=== PATIENT | female | born 1960 | race Caucasian/White ===

== ENCOUNTER → 2019-05-09 15:49 | Outpatient (BNVA) | payer MEDICARE, SELFPAY | PROVIDERS: Family Provider Registered Nurse; PCP Registered Nurse; Visit Provider Nurse Practitioner Family | DX: R60.9 Edema, unspecified (principal); E03.9 Hypothyroidism, unspecified; I73.9 Peripheral vascular disease, unspecified | CPT/HCPCS: 83880; 84443 ==

== ENCOUNTER 2019-05-24 13:57 | Outpatient (CLI) | payer MEDICARE, SELFPAY ==
--- NOTE | 2019-05-24 13:30 | USCV_ITS ---
Dee Dee Renetta Age: 58 Gender: F : 1960 Exam Date: 05/24/2019 14:12 Ordering Phys: Kiara Lord Technologist: Lashae Madden Exam Location: [facility] [place] Indication: PAIN AND SWELLING PROCEDURES: Venous duplex imaging was performed in bilateral lower extremities. The following venous structures were evaluated: common femoral vein, profunda vein, proximal portion of the greater saphenous vein, superficial femoral vein, and the popliteal vein. In addition, the posterior tibial and peroneal trunk were evaluated. FINDINGS: Normal 2-D Doppler and augmentation and compressibility throughout the lower extremity venous structures. Additional imaging through the proximal calf veins also reveals no thrombus. Limited evaluation of the greater saphenous vein is patent with no thrombus. CONCLUSIONS No DVT bilateral lower extremities. Dr. Laura Toribio DO (Electronically Signed) Final Date: 24 May 2019 14:58 S
== END 2019-05-24 13:58 | disposition home or self-care (01) ==
LOC: RAD 14:02
PROVIDERS: Family Provider Registered Nurse; PCP Registered Nurse; Visit Provider Nurse Practitioner Family
DX: I73.9 Peripheral vascular disease, unspecified (principal); M79.605 Pain in left leg; M79.604 Pain in right leg; M79.89 Other specified soft tissue disorders
CPT/HCPCS: 93970

== ENCOUNTER 2019-05-25 15:33 | Outpatient (CLI) | payer MEDICARE, SELFPAY ==
--- NOTE | 2019-05-25 15:43 | USCV_ITS ---
Renetta Funez Age: 58 Gender: F : 1960 Exam Date: 05/25/2019 15:52 Ordering Phys: Kiara Lord Technologist: Mouna Estrada [place] [facility] [place]ication: Claudication Risk Factors: Unknown Previous Vascular Surgery: None RIGHT LEFT BP: 131.0 / BP: 135.0/ 0 0 Waveform Velocity (cm/s) Velocity (cm/s) Waveform Triphasic 113.8 Iliac Prox 84.7 Triphasic Biphasic 85.9 Iliac Mid 96.4 Triphasic Triphasic 89.4 Iliac Distal 67.3 Triphasic Biphasic 80.1 GENERAL FARM MANAGER 87.5 Triphasic Biphasic 74.3 SFA Prox 80.1 Triphasic Biphasic 78.2 SFA Mid 75.8 Triphasic Triphasic 89.6 SFA Dist 102.5 Triphasic Triphasic 65.4 POP 42.9 Biphasic Biphasic 69.8 TELETYPEWRITER OPERATOR 64.3 Biphasic Biphasic 141.7 DPA 33.0 Biphasic DEANGELO 1.3 1.3 FINDINGS RT TBI .76 LT TBI .96 Normal resting ABIs and TBI's bilaterally Minimal plaques in the iliac and femoral arteries bilaterally CONCLUSIONS No significant arterial obstruction, based on the above findings Minimal plaques in the iliac and femoral arteries bilaterally Dr Jorge Dutton MD [facility] (Electronically Signed) Final Date: 26 May 2019 09:34 S
== END 2019-05-25 15:34 | disposition home or self-care (01) ==
LOC: RAD 15:36
PROVIDERS: Family Provider Registered Nurse; PCP Registered Nurse; Visit Provider Nurse Practitioner Family
DX: I70.213 Atherosclerosis of native arteries of extremities with intermittent claudication, bilateral legs (principal)
CPT/HCPCS: 93925; 99214

== ENCOUNTER → 2019-06-15 09:59 | Outpatient (BNVA) | payer MEDICARE, SELFPAY | PROVIDERS: Family Provider Registered Nurse; PCP Registered Nurse; Visit Provider Psychiatry & Neurology Psychiatry | DX: F43.12 Post-traumatic stress disorder, chronic (principal); F31.32 Bipolar disorder, current episode depressed, moderate | CPT/HCPCS: 99213 ==

== ENCOUNTER → 2019-09-05 08:50 | Outpatient (BNVA) | payer MEDICARE, SELFPAY | PROVIDERS: Family Provider Registered Nurse; PCP Registered Nurse; Visit Provider Psychiatry & Neurology Psychiatry | DX: F60.3 Borderline personality disorder (principal); F43.12 Post-traumatic stress disorder, chronic; F33.1 Major depressive disorder, recurrent, moderate | CPT/HCPCS: 99213 ==

== ENCOUNTER → 2019-12-11 10:29 | Outpatient (BNVA) | payer MEDICARE, SELFPAY | PROVIDERS: Family Provider Registered Nurse; PCP Registered Nurse; Visit Provider Psychiatry & Neurology Psychiatry | DX: F60.3 Borderline personality disorder (principal); F43.12 Post-traumatic stress disorder, chronic; F33.1 Major depressive disorder, recurrent, moderate | CPT/HCPCS: 99213 ==

== ENCOUNTER → 2020-01-31 10:50 | Outpatient (BNVA) | payer MEDICARE, SELFPAY | PROVIDERS: Family Provider Registered Nurse; PCP Registered Nurse; Visit Provider Registered Nurse | DX: E78.2 Mixed hyperlipidemia (principal); E03.9 Hypothyroidism, unspecified | CPT/HCPCS: 80053; 80061; 84443; 85025 ==

== ENCOUNTER → 2020-02-09 07:40 | Outpatient (BNVA) | payer MEDICARE, SELFPAY | PROVIDERS: Family Provider Registered Nurse; PCP Registered Nurse; Visit Provider Psychiatry & Neurology Psychiatry | DX: F60.3 Borderline personality disorder (principal); F43.12 Post-traumatic stress disorder, chronic; F33.1 Major depressive disorder, recurrent, moderate | CPT/HCPCS: 99213 ==

== ENCOUNTER → 2020-03-05 15:08 | Outpatient (BNVA) | payer MEDICARE, SELFPAY | PROVIDERS: Family Provider Registered Nurse; PCP Registered Nurse; Visit Provider Registered Nurse | DX: R39.9 Unspecified symptoms and signs involving the genitourinary system (principal) | CPT/HCPCS: 81000 ==

== ENCOUNTER → 2020-03-08 07:52 | Outpatient (BNVA) | payer MEDICARE, SELFPAY | PROVIDERS: Family Provider Registered Nurse; PCP Registered Nurse; Visit Provider Psychiatry & Neurology Psychiatry | DX: F60.3 Borderline personality disorder (principal); F43.12 Post-traumatic stress disorder, chronic; F33.1 Major depressive disorder, recurrent, moderate | CPT/HCPCS: 99213 ==

== ENCOUNTER → 2020-03-18 13:40 | Outpatient (BNVA) | payer MEDICARE, SELFPAY | PROVIDERS: Family Provider Registered Nurse; PCP Registered Nurse; Visit Provider Nurse Practitioner Family | DX: M79.671 Pain in right foot (principal) | CPT/HCPCS: 73630 ==

== ENCOUNTER 2020-03-21 14:45 | Outpatient (CLI) | payer MEDICARE, SELFPAY ==
--- NOTE | 2020-03-21 15:00 | MM_ITS ---
WS: [id number] BILATERAL SCREENING DIGITAL MAMMOGRAM WITH CAD HISTORY: screening mammogram COMPARISON: 11/24/2017 and 10/01/2016 Bilateral CC and MLO views submitted. Computer aided detection analyzed. Breast composition: The breasts are heterogeneously dense, which may obscure small masses. No suspici ous masses, microcalcifications or architectural distortion. Benign lymph node upper outer quadrant R IGHT breast. MM/[id number] IMPRESSION: BI-RADS: 2-Benign FOLLOW UP: 1 Year Follow-up
== END 2020-03-21 14:46 | disposition home or self-care (01) ==
LOC: RADSHAW 14:51
PROVIDERS: PCP Registered Nurse; Visit Provider Registered Nurse
DX: Z12.31 Encounter for screening mammogram for malignant neoplasm of breast (principal)
CPT/HCPCS: 77067

== ENCOUNTER → 2020-05-06 07:48 | Outpatient (BNVA) | payer MEDICARE, SELFPAY | PROVIDERS: PCP Registered Nurse; Visit Provider Psychiatry & Neurology Psychiatry | DX: F33.1 Major depressive disorder, recurrent, moderate (principal); F43.12 Post-traumatic stress disorder, chronic; F60.3 Borderline personality disorder | CPT/HCPCS: 99213 ==

== ENCOUNTER → 2020-06-03 08:17 | Outpatient (BNVA) | payer MEDICARE, SELFPAY | PROVIDERS: PCP Registered Nurse; Visit Provider Psychiatry & Neurology Psychiatry | DX: F43.12 Post-traumatic stress disorder, chronic (principal); F60.3 Borderline personality disorder; F33.1 Major depressive disorder, recurrent, moderate | CPT/HCPCS: 99214 ==

== ENCOUNTER → 2020-06-18 07:54 | Outpatient (BNVA) | payer MEDICARE, SELFPAY | PROVIDERS: PCP Registered Nurse; Visit Provider Psychiatry & Neurology Psychiatry | DX: F60.3 Borderline personality disorder (principal); F41.1 Generalized anxiety disorder; F43.12 Post-traumatic stress disorder, chronic | CPT/HCPCS: 99213 ==

== ENCOUNTER 2020-07-31 16:11 | Inpatient (IN) | payer MEDICARE, SELFPAY ==
[2020-07-31 16:15] VITALS: BP 132/66; PULSE 76; RESP 18; TEMP 37.1; O2SAT 97
[2020-07-31 16:30] VITALS: BP 132/99; PULSE 74; RESP 18; O2SAT 97
[2020-07-31 17:12] LABS: Add Urine Microscopic? NO
[2020-07-31 17:13] LABS: Basophils % 0.5 %; Eosinophils # 0.1 10^3/uL (0.0-0.8); Eosinophils % 1.4 %; Hemoglobin 15.4 g/dL (11.5-15.3); Lymphocytes # 3.5 10^3/uL (0.8-4.8); Mean Corpuscular Hemoglobin 32.8 pg (28.0-34.0); Mean Corpuscular Volume 93.6 fL (81-99); Mean Platelet Volume 9.9 fL (7.4-10.4); Monocytes # 0.6 10^3/uL (0.2-0.9); Monocytes % 7.4 %; Neutrophils # 4.28 10^3/uL (1.8-7.7); Neutrophils % 49.5 %; Nucleated Red Blood Cells % 0 %; Platelet Count 261 10^3/cmm (130-400); Red Cell Distribution Width 11.9 % (12.1-15.1); White Blood Count 8.6 10^3/uL (4.0-10.0)
--- NOTE | 2020-07-31 17:25 | PC.PHAR ---
pt states she takes care of her own medications-pt states she takes metoprolol tartrate maybe a couple times a week-ext med history shows last filled on 07/04/20 25mg po bid-
[2020-07-31] MEDS: acetaminophen 325 mg Tablet 650 MG PO (17:26)
[2020-07-31 17:31] LABS: Bilirubin Urine Neg (Negative); Blood Urine Neg (Negative); Glucose Urine UA Norm (Normal); Ketones Urine Negative (Negative); Leukocyte Esterase Urine Negative (Negative); Nitrate Urine Negative (Negative); Protein Urine Neg (Negative); Urine Appearance Clear (CLEAR); Urine Color Straw (Yellow); Urobilinogen Urine Norm (Negative); pH Urine 5 (5-7)
[2020-07-31 17:39] LABS: Amphetamines Screen Urine Negative (Negative); Barbiturates Screen Urine Negative (Negative); Benzodiazepines Screen Urine Positive (Negative); Cocaine Screen Urine Negative (Negative); Opiate Screen Urine Negative (Negative); PCP Screen Urine Negative (Negative); THC Screen Urine Negative (Negative)
[2020-07-31 18:02] LABS: Alanine Aminotransferase 21 U/L (0-33); Albumin Level 4.9 g/dL (3.5-5.2); Alkaline Phosphatase 158 IU/L (35-105); Anion Gap 14.8 (5-19); Aspartate Amino Transferase 17 U/L (0-32); Blood Urea Nitrogen 16 mg/dL (8-23); Calcium 9.8 mg/dL (8.5-10.5); Carbon Dioxide 31 mmol/L (22-29); Chloride 102 mmol/L (98-107); Globulin 2.8 g/dL (1.3-4.6); Glomerular Filtration Rate 72.9 mL/min (90-130); Glucose 71 mg/dL (65-115); Osmolality Calculated 298 mOsm/kg (285-295); Potassium 3.8 mmol/L (3.5-5.1); Sodium 144 mmol/L (136-145); Thyroid Stimulating Hormone 3.04 uIU/mL (0.27-4.20); Total Bilirubin 0.2 mg/dL (0.15-1.2); Total Protein 7.7 g/dL (6.6-8.7)
[2020-07-31 18:09] LABS: Acetaminophen < 5.0 ug/mL (10-30); Alcohol Level < 10 mg/dL (0-10); Salicylate < 0.3 mg/dL (3-10)
--- NOTE | 2020-07-31 18:59 | W.ED.PSYCH ---
HPI - Psych General: Chief Complaint: Psychiatric Symptoms Stated Complaint: SI Time Seen by Provider: 07/31/20 16:12 History of Present Illness: HPI Narrative: Is a 59-year-old female with past medical history major depression who comes to the ER complaining of suicidal thoughts. She says over the past few months it has gotten worse because the shoe cementer told him they were for closing on their house and that they were going to sell it. She has obtained a entertainment lawyer to try and prevent this however recently learned she was swindled out of $8000 and that they are still losing their home. She has attempted to overdose on prescription medications in the past but made no attempt today and has no immediate plan of action. She is tearful and sad she feels like she is ruining her her children and her grandchildren's life complaint: suicidal ideation and feels depressed Duration: constant History of same: Yes Relieving factors: none Exacerbating factors: none Associated psychiatric symptoms: depression and suicidal ideation Associated symptoms: Reports depression and suicidal ideation If self harm: admits thoughts of self harm Review of Systems General: Reports: 10 or more systems reviewed and unremarkable except in HPI and below Const: Denies: fatigue Eyes: Denies: change in vision, blurry vision or eye redness ENMT: Denies: throat pain, swelling of lips/tongue, ear or mastoid pain or nasal congestion Card: Denies: chest pain, palpitations, irregular heart rhythm, edema, dyspnea on exertion or orthopnea Resp: Denies: dyspnea, productive cough or non-productive cough GI: Denies: abdominal pain, diarrhea or GI cramping : Denies: flank pain, difficulty voiding, urinary frequency or urinary urgency Musc: Denies: neck pain, back pain, extremity pain, joint pain, joint redness, limited range of motion or muscle weakness Skin/Breast: Denies: rash, pruritus, erythema, skin pain or skin tenderness Neuro: Denies: headache(s), numbness in extremities, weakness in extremities, sensory changes, difficulty walking, dizziness, confusion or Slurred speech present Psych: Reports: depression and suicidal ideation; Denies: anxiety Endo: Denies: polyuria All/Imm: Denies: urticaria, throat swelling or tongue swelling PFS ED PFSH: Medical History (Updated 07/31/20 @ 19:02 by Alejandro Coto MD) Back pain of lumbosacral region with sciatica Edema Enrolled in chronic care management History of UT (myocardial infarction) Hyperlipemia Mental and behavioral problem Shortness of breath Family History Other No significant family history Social History Smoking and tobacco status: never smoked Second hand smoke exposure: Yes Smoking risk assessment/counseling performed?: No Alcohol intake: never Physical Exam Const: COMMON NORMALS: no acute distress, average body habitus, patient oriented x3, no limitations, healthy appearing, alert and well nourished GENERAL APPEARANCE: cooperative, comfortable and well developed ORIENTATION/CONSCIOUSNESS: Yes awake, Yes oriented to person, Yes oriented to place and Yes oriented to time HENMT: COMMON NORMALS: normocephalic, external ears normal and Normal external nose present HEAD & SCALP: normal to inspection and normocephalic NOSE: Normal external nose present EXTERNAL EAR: Yes external ears normal MOUTH: Normal oral and palatal mucosa present THROAT: posterior oropharynx normal Eye: COMMON NORMALS: Equal, round and reactive pupils present and EOMs intact bilaterally GENERAL EYE: appearance normal, both eyes and all related structures PUPIL: Yes Equal, round and reactive pupils present Neck/C-Spine: COMMON NORMALS: full ROM, no lymphadenopathy, no meningeal signs and no JVD GENERAL: Yes normal visual inspection Lymph: LYMPHATIC: no lymphadenopathy noted Chest: COMMONS NORMALS: normal inspection of the chest and normal palpation of entire chest wall Resp: COMMON NORMALS: normal respiratory effort, No retractions, No use of accessory muscles, clear to auscultation bilaterally and percussion normal EFFORT & INSPECTION: Yes able to speak in complete sentences AUSCULTATION: clear to auscultation bilaterally PERCUSSION: percussion normal Cardio: COMMON NORMALS: no JVD, regular rate, regular rhythm, S1 normal heart sound present, S2 normal heart sound present and Peripheral pulses 2+ throughout RATE: regular rate RHYTHM: regular rhythm HEART SOUNDS: S1 normal heart sound present and S2 normal heart sound present PERIPHERAL PULSES: Peripheral pulses 2+ throughout GI: COMMON NORMALS: Normal to inspection, nondistended, normoactive bowel sounds present, Soft to palpation, non-tender and no masses INSPECTION: Yes normal to inspection PALPATION: Yes Soft to palpation : COMMON NORMALS: Yes no CVA tenderness BLADDER/KIDNEY EXAM: Yes no CVA tenderness Back/Pelvis: COMMON NORMALS: no CVA tenderness, thoracic and lumbar spine normal to inspection, no thoracic nor lumbar tenderness and thoraco-lumbar ROM normal Extremity: COMMON NORMALS: normal to inspection, full ROM, capillary refill normal, no joint enlargement and no pedal edema GENERAL: Yes normal exam except as noted Neuro: COMMON NORMALS: patient oriented x3, CN's II-XII intact bilaterally, moves all extremities, no focal motor deficits, no sensory deficits noted and gait normal SENSORIUM/ORIENTATION: Yes alert, Yes oriented to person, Yes oriented to place and Yes oriented to time MENINGEAL SIGNS: Yes no meningeal signs Psych: COMMON NORMALS: mental status grossly normal, Normal thought process present, cooperative, normal affect and speech normal APPEARANCE: Yes unkempt ATTITUDE: Yes calm SPEECH: Yes normal speech MOOD & AFFECT: Yes depressed mood, Yes sad and Yes tearful THOUGHT PROCESS: Normal thought process present THOUGHT CONTENT: Yes Suicidality present Skin: COMMON NORMALS: no rashes or lesions noted GENERAL SKIN EXAM: no rashes or lesions noted MDM - Psych MDM Narrative: Medical decision making narrative: The patient is suicidal. Discussed with Dr. Pereira who accepts for admission. Lab Data: Labs: Lab Results 07/31/20 07/31/20 07/31/20 Range/Units 16:47 16:47 16:47 WBC 8.6 (4.0-10.0) 10^3/ uL RBC 4.70 (4.1-5.3) 10^6/u L Hgb 15.4 H (11.5-15.3) g/dL Hct 44.0 (37.0-47.0) % MCV 93.6 (81-99) fL MCH 32.8 (28.0-34.0) pg MCHC 35.0 (30.0-36.0) g/dL RDW 11.9 L (12.1-15.1) % Plt Count 261 (130-400) 10^3/c mm MPV 9.9 (7.4-10.4) fL Neut % (Auto) 49.5 % Lymph % (Auto) 41.0 % [place] % (Auto) 7.4 % Eos % (Auto) 1.4 % Baso % (Auto) 0.5 % Neut # (Auto) 4.28 (1.8-7.7) 10^3/u L Lymph # (Auto) 3.5 (0.8-4.8) 10^3/u L [place] # (Auto) 0.6 (0.2-0.9) 10^3/u L Eos # (Auto) 0.1 (0.0-0.8) 10^3/u L Baso # (Auto) 0.0 (0.0-0.1) 10^3/u L Nucleated RBC % (a uto) 0 % Nucleated RBCs # 0.0 /100WBC Sodium 144 (136-145) mmol/L Potassium 3.8 (3.5-5.1) mmol/L Chloride 102 (98-107) mmol/L Carbon Dioxide 31 H (22-29) mmol/L Anion Gap 14.8 (5-19) BUN 16 (8-23) mg/dL Creatinine 0.8 (0.5-0.9) mg/dL GFR Calculation 72.9 L (90-130) mL/min Glucose 71 (65-115) mg/dL Calculated Osmolal ity 298 H (285-295) mOsm/k g Calcium 9.8 (8.5-10.5) mg/dL Total Bilirubin 0.2 (0.15-1.2) mg/dL AST 17 (0-32) U/L ALT 21 (0-33) U/L Alkaline Phosphata se 158 H (35-105) IU/L Total Protein 7.7 (6.6-8.7) g/dL Albumin 4.9 (3.5-5.2) g/dL Globulin 2.8 (1.3-4.6) g/dL TSH 3.04 (0.27-4.20) uIU/ mL Urine Color Straw (Yellow) Urine Appearance Clear (CLEAR) Urine pH 5 (5-7) Ur Specific Gravit y 1.010 (1.005-1.030) Urine Protein Neg (Negative) Urine Glucose (UA) Norm (Normal) Urine Ketones Negative (Negative) Urine Blood Neg (Negative) Urine Nitrate Negative (Negative) Urine Bilirubin Neg (Negative) Urine Urobilinogen Norm (Negative) mg/dL Ur Leukocyte Veronica ase Negative (Negative) Salicylates < 0.3 L (3-10) mg/dL Urine Opiates Scre en (Negative) ng/mL Acetaminophen < 5.0 L (10-30) ug/mL Ur Barbiturates Sc reen (Negative) ng/mL Ur Phencyclidine S crn (Negative) ng/mL Ur Amphetamines Sc reen (Negative) ng/mL U Benzodiazepines Scrn (Negative) ng/mL Urine Cocaine Scre en (Negative) ng/mL U Marijuana (THC) Screen (Negative) ng/mL Ethyl Alcohol < 10 (0-10) mg/dL 07/31/20 Range/Units 16:47 WBC (4.0-10.0) 10^3/ uL RBC (4.1-5.3) 10^6/u L Hgb (11.5-15.3) g/dL Hct (37.0-47.0) % MCV (81-99) fL MCH (28.0-34.0) pg MCHC (30.0-36.0) g/dL RDW (12.1-15.1) % Plt Count (130-400) 10^3/c mm MPV (7.4-10.4) fL Neut % (Auto) % Lymph % (Auto) % [place] % (Auto) % Eos % (Auto) % Baso % (Auto) % Neut # (Auto) (1.8-7.7) 10^3/u L Lymph # (Auto) (0.8-4.8) 10^3/u L [place] # (Auto) (0.2-0.9) 10^3/u L Eos # (Auto) (0.0-0.8) 10^3/u L Baso # (Auto) (0.0-0.1) 10^3/u L Nucleated RBC % (a uto) % Nucleated RBCs # /100WBC Sodium (136-145) mmol/L Potassium (3.5-5.1) mmol/L Chloride (98-107) mmol/L Carbon Dioxide (22-29) mmol/L Anion Gap (5-19) BUN (8-23) mg/dL Creatinine (0.5-0.9) mg/dL GFR Calculation (90-130) mL/min Glucose (65-115) mg/dL Calculated Osmolal ity (285-295) mOsm/k g Calcium (8.5-10.5) mg/dL Total Bilirubin (0.15-1.2) mg/dL AST (0-32) U/L ALT (0-33) U/L Alkaline Phosphata se (35-105) IU/L Total Protein (6.6-8.7) g/dL Albumin (3.5-5.2) g/dL Globulin (1.3-4.6) g/dL TSH (0.27-4.20) uIU/ mL Urine Color (Yellow) Urine Appearance (CLEAR) Urine pH (5-7) Ur Specific Gravit y (1.005-1.030) Urine Protein (Negative) Urine Glucose (UA) (Normal) Urine Ketones (Negative) Urine Blood (Negative) Urine Nitrate (Negative) Urine Bilirubin (Negative) Urine Urobilinogen (Negative) mg/dL Ur Leukocyte Veronica ase (Negative) Salicylates (3-10) mg/dL Urine Opiates Scre en Negative (Negative) ng/mL Acetaminophen (10-30) ug/mL Ur Barbiturates Sc reen Negative (Negative) ng/mL Ur Phencyclidine S crn Negative (Negative) ng/mL Ur Amphetamines Sc reen Negative (Negative) ng/mL U Benzodiazepines Scrn Positive H (Negative) ng/mL Urine Cocaine Scre en Negative (Negative) ng/mL U Marijuana (THC) Screen Negative (Negative) ng/mL Ethyl Alcohol (0-10) mg/dL Discharge Plan Discharge Patient Disposition: Admitted As Inpatient Clinical Impression: Suicidal ideation Condition: Stable Coding Level of Care Code ED Sales Incentive Analyst for Mamie Beth
[2020-07-31 23:00] VITALS: BP 115/73; PULSE 66; TEMP 36.6
[2020-07-31 23:38] VITALS: BP 115/73; PULSE 66; RESP 18; TEMP 36.6
[2020-08-01] MEDS: acetaminophen 325 mg Tablet 650 MG PO ×3 (02:28→13:52)
[2020-08-01] MEDS: hyDROXYzine 25 mg Capsule 50 MG PO (02:29)
--- NOTE | 2020-08-01 03:50 | PC.NURSE ---
59/F HX OF MDD, COMPLAINT OF RACING AND INCREASINGLY SUICIDAL THOUGHTS, DEPRESSION INCREASED OVER THE LAST 2 MONTHS SHE SAYS THE LEGAL MARTIN IS JUST TO MUCH, PT IS HAVING FINANCIAL DIFFICULTIES AND FACING THE LOSS OF THEIR HOME. PT HAS ATTEMPTED OD SEVERAL TIMES IN THE PASTM SHE ADMITS TO THOUGHTS OF SUICIDE BUT NO PLAN AT THIS TIME, SHE IS TEARFUL AND SAD, SHE FEELS LIKE HER , CHILDREN, AND GRANDBABIES WOULD BE BETTER OFF WITHOUT HER. PT REPORTS CHRONIC PAIN AND DAILY USE OF MARIJUANA. BAL NEG v/s are wnl, states she has a headache and decreased energy, Med nurse notified, she is depressed, denies si/hi, denies ah/vh now. DOA +THC
[2020-08-01 05:34] VITALS: BP 135/71; PULSE 67; TEMP 36.4; O2SAT 97
[2020-08-01] MEDS: levothyroxine 25 mcg Tablet PO (06:38)
[2020-08-01] MEDS: fluoxetine 20 mg Capsule 60 MG PO (08:38)
[2020-08-01] MEDS: hydroCHLOROthiazide 25 mg Tablet 12.5 MG PO (08:38)
[2020-08-01] MEDS: metoprolol tartrate 25 mg Tablet PO ×2 (08:39→21:24)
[2020-08-01 13:03] VITALS: BP 154/77; PULSE 71; RESP 18; TEMP 36.4; O2SAT 97
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
[2020-08-01] MEDS: doxepin 50 mg Capsule PO (21:24)
[2020-08-01] MEDS: aspirin 81 mg EC Tablet PO (21:24)
[2020-08-01] MEDS: atorvastatin 40 mg Tablet 20 MG PO (21:25)
[2020-08-01 21:34] VITALS: BP 117/84; PULSE 71; RESP 18; TEMP 36.8; O2SAT 96
[2020-08-02] MEDS: fluoxetine 20 mg Capsule 60 MG PO (05:34)
[2020-08-02] MEDS: hydroCHLOROthiazide 25 mg Tablet 12.5 MG PO (05:34)
[2020-08-02] MEDS: levothyroxine 25 mcg Tablet PO (05:35)
[2020-08-02 06:00] VITALS: BP 126/78; PULSE 70; RESP 16; TEMP 36.9; O2SAT 97
[2020-08-02] MEDS: fluoxetine 20 mg Capsule 80 MG PO (07:03)
--- NOTE | 2020-08-02 07:15 | PC.NURSE ---
Prozac 80 mg ordered after 60mg was given. called Dr. Pereira he said order one time dose of 20mg. given
[2020-08-02] MEDS: fluoxetine 20 mg Capsule PO (07:18)
[2020-08-02] MEDS: metoprolol tartrate 25 mg Tablet PO (08:50)
[2020-08-02] MEDS: docusate sodium 100 mg Capsule PO (12:05)
[2020-08-02] MEDS: acetaminophen 325 mg Tablet 650 MG PO (13:37)
[2020-08-02 14:00] VITALS: RESP 18
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
[2020-08-02 16:13] VITALS: RESP 18
== END 2020-08-02 16:54 | disposition home or self-care (01) | DRG 881 ==
LOC: ER 19:02 → NP 19:23
PROVIDERS: Admitting Provider Psychiatry & Neurology Psychiatry; Emergency Provider Family Medicine; PCP Registered Nurse; Visit Provider Psychiatry & Neurology Psychiatry
DX: F32.9 Major depressive disorder, single episode, unspecified (principal); R45.851 Suicidal ideations; G89.29 Other chronic pain; M51.17 Intervertebral disc disorders with radiculopathy, lumbosacral region; I25.2 Old myocardial infarction; E78.2 Mixed hyperlipidemia; Z77.22 Contact with and (suspected) exposure to environmental tobacco smoke (acute) (chronic); K21.9 Gastro-esophageal reflux disease without esophagitis; E66.9 Obesity, unspecified; Z68.30 Body mass index [BMI] 30.0-30.9, adult; I25.10 Atherosclerotic heart disease of native coronary artery without angina pectoris; Z95.5 Presence of coronary angioplasty implant and graft; F43.12 Post-traumatic stress disorder, chronic; M48.061 Spinal stenosis, lumbar region without neurogenic claudication; E03.9 Hypothyroidism, unspecified; Z63.4 Disappearance and death of family member; I73.9 Peripheral vascular disease, unspecified; Z79.82 Long term (current) use of aspirin
CPT/HCPCS: 80053; 80306; 80307; 81003; 84443; 85025; 99285

== ENCOUNTER 2020-08-06 09:59 | Outpatient (CLI) | payer MEDICARE, SELFPAY ==
[2020-08-06 10:39] VITALS: BMI 32.9
--- NOTE | 2020-08-06 10:40 | NMCV_ITS ---
NM mani perf SPECT r/s* [id number] Renetta Funez Age: 59 Gender: F : 1960 Exam Date: 08/06/2020 10:40 Ordering Phys: Lorna Trujillo MD ([email or web address]) Technologist: NELLY Mace Exam Location: [facility] Indications: CHEST PAIN STRESS TEST Please see separate stress test report in [facility] for full findings IMAGE PROTOCOL Rest/Stress 1 Lexiscan Day Radiopharmaceutical Dose (mCi) Administration Site Administered by Rest: Tc-99m 10.5 IV NELLY Mace Sestamibi Stress:Tc-99m 33.0 IV NELLY Kothari Sestamibi Rest: 06-Aug-2020 60 Discovery 630 Stress: 06-Aug-2020 30 Discovery 630 0.4mg Lexiscan. Images obtained in supine and prone position. SPECT RESULTS Technical Quality: Good Raw Data Analysis: Breast attenuation Image Corrections: Patient motion artifact - motion correction applied to rest and stress images. Summed Stress Score: 4 Summed Rest Score: 3 Summed Difference Score: 1 PERFUSION FINDINGS Small sized perfusion abnormality of moderate severity of basal to mid inferolateral wynn on supine stress images with somewhat improved tracer uptake in prone stress images. FUNCTIONAL RESULTS (calculated via Gated SPECT) Stress Image LV EF (%): 72 Stress EDV (mL):68 TID: 1.03 Stress ESV (mL):19 FUNCTIONAL FINDINGS: The left ventricle is normal in size. Transient Ischemia Dilatation of 1. There is normal left ventricular systolic function. The left ventricular ejection fraction is normal with a value of 72%. There is normal left ventricular wall thickening. Normal end diastolic and end systolic function. IMPRESSIONS 1. Small sized reversible perfusion abnormality of moderate severity of basal to mid inferolateral wynn on stress images. 2. This may represent attenuation artifact. However, ischemia in circumflex artery territory cannot be completely ruled out. 3. Overall left ventricular systolic function is normal without regional wall motion abnormalities. 4. The left ventricular ejection fraction is normal with a value of 72%. 5. EKG portion of the study will be reported separately. Lorna Trujillo MD (Electronically Signed) Final Date: 11 August 2020 12:08 S
--- NOTE | 2020-08-06 10:40 | ECG_ITS ---
[facility] Test Date: 2020-08-06 Pat Name: Renetta Funez Department: Room: Gender: Female Mattress Stuffer: : 1960 Requested By: Lorna Trujillo Order Number: [id number] Shepherd MD: Lorna Trujillo M.D. Interpretive Statements NAME OF STUDY: LEXISCAN SESTAMIBI STRESS TEST INDICATION: Chest Pain PROCEDURE: At the baseline, the blood pressure was 131/66 mmHg, oxygen saturation 97% with a heart rate of 74 bpm. The electrocardiogram showed normal sinus rhythm with frequent PVC. left axis deviation. Possible old anteroseptal infarct. Low QRS voltage. The Lexiscan was infused over a period of 20 seconds. A total of 0.4 milligrams of Lexiscan was infused. The stress phase was continued for a total of 5 minutes. Heart rate at the end of the stress phase was 97 beats per minute, oxygen saturation 96% with a blood pressure 153/69 mmHg. The EKG at the peak infusion revealed sinus rhythm at 97 bpm with no significant ST-T wave changes. The study was terminated due to protocol completion. Sestamibi was injected 20 seconds after the Lexiscan infusion. Blood pressure at the end of the recovery phase was 146/70 mmHg, oxygen saturation 94% with a heart rate of 89 beats per minute. CONCLUSION: 1. No significant EKG changes with the LexiScan infusion. 2. No LexiScan induced chest pain or cardiac arrhythmia. 3. Normal blood pressure and heart rate response. 4. Functional status could not be assessed due to pharmacological protocol. 5. Sestamibi/sestamibi perfusion scan pending; see separate report. Electronically Signed On 08-12-2020 13:28:11 CDT by Lorna Trujillo M.D. [id number]
[2020-08-06] MEDS: regadenoson 0.4 Mg/5 ml Syringe IVP (12:24)
[2020-08-06 12:36] VITALS: BP 146/70; PULSE 87
== END 2020-08-06 10:00 | disposition home or self-care (01) ==
LOC: CDL 10:06
PROVIDERS: PCP Registered Nurse; Visit Provider Internal Medicine Cardiovascular Disease
DX: I25.10 Atherosclerotic heart disease of native coronary artery without angina pectoris (principal); R07.9 Chest pain, unspecified
CPT/HCPCS: 78452; 93017; A9500; J2785

== ENCOUNTER → 2020-10-01 10:19 | Outpatient (BNVA) | payer MEDICARE, SELFPAY | PROVIDERS: PCP Registered Nurse; Visit Provider Registered Nurse | DX: E53.8 Deficiency of other specified B group vitamins (principal); E03.9 Hypothyroidism, unspecified; E55.9 Vitamin D deficiency, unspecified; E66.9 Obesity, unspecified; F33.1 Major depressive disorder, recurrent, moderate | CPT/HCPCS: 80053; 82306; 82607; 84443 ==

== ENCOUNTER → 2020-10-30 14:05 | Outpatient (BNVA) | payer MEDICARE, SELFPAY | PROVIDERS: PCP Registered Nurse; Visit Provider Psychiatry & Neurology Psychiatry | DX: F60.3 Borderline personality disorder (principal); F43.12 Post-traumatic stress disorder, chronic; F33.1 Major depressive disorder, recurrent, moderate | CPT/HCPCS: 99213 ==

== ENCOUNTER → 2021-01-22 09:37 | Outpatient (BNVA) | payer MEDICARE, SELFPAY | PROVIDERS: PCP Registered Nurse; Visit Provider Psychiatry & Neurology Psychiatry | DX: F33.1 Major depressive disorder, recurrent, moderate (principal); F43.12 Post-traumatic stress disorder, chronic; F60.3 Borderline personality disorder | CPT/HCPCS: 99214 ==

== ENCOUNTER → 2021-04-16 07:35 | Outpatient (BNVA) | payer MEDICARE, SELFPAY | PROVIDERS: PCP Registered Nurse; Visit Provider Psychiatry & Neurology Psychiatry | DX: F33.1 Major depressive disorder, recurrent, moderate (principal); F43.12 Post-traumatic stress disorder, chronic; F60.3 Borderline personality disorder | CPT/HCPCS: 99214 ==

== ENCOUNTER → 2021-05-26 11:41 | Outpatient (BNVA) | payer MEDICARE, SELFPAY | PROVIDERS: PCP Registered Nurse; Visit Provider Registered Nurse | DX: E03.9 Hypothyroidism, unspecified (principal); E55.9 Vitamin D deficiency, unspecified; E78.5 Hyperlipidemia, unspecified; Z12.31 Encounter for screening mammogram for malignant neoplasm of breast; E78.2 Mixed hyperlipidemia | CPT/HCPCS: 80053; 80061; 82306; 84443 ==

== ENCOUNTER → 2021-07-11 10:57 | Outpatient (BNVA) | payer MEDICARE, SELFPAY | PROVIDERS: PCP Registered Nurse; Visit Provider Psychiatry & Neurology Psychiatry | DX: F60.3 Borderline personality disorder (principal); F43.12 Post-traumatic stress disorder, chronic; F33.1 Major depressive disorder, recurrent, moderate | CPT/HCPCS: 99214 ==

== ENCOUNTER 2021-07-14 10:59 | Outpatient (CLI) | payer MEDICARE, SELFPAY ==
--- NOTE | 2021-07-14 11:12 | MM_ITS ---
WS: [id number] BILATERAL 3D TOMOSYNTHESIS DIGITAL SCREENING MAMMOGRAPHY WITH CAD CLINICAL INFORMATION: Z12.31 - Encounter for screening mammogram for malignant ... HISTORY: Screening mammogram. RIGHT breast pain and soreness COMPARISON: March 21, 2020 TECHNIQUE: Bilateral CC and MLO views. FINDINGS: The breasts are composed of heterogeneous fibroglandular density tissue, which can limit the detectio n of small underlying mass lesions. Incidental intramammary lymph node upper outer RIGHT breast. A fe w punctate and lucent centered calcifications. 8 mm asymmetric density central LEFT breast along the posterior nipple line best seen on the MLO view. Recommend further evaluation LEFT breast 3-D diagnos tic mammography and ultrasound. RIGHT breast is unchanged and unremarkable. MM/[place] [id number] IMPRESSION: BI-RADS: 0-Incomplete: Need additional imaging evaluation FOLLOW UP: Need Additional Imaging Recommend further evalauation LEFT breast 3-D Tomosynthesis diagnostic mammogra phy and ultrasound.
== END 2021-07-14 11:00 | disposition home or self-care (01) ==
PROVIDERS: PCP Registered Nurse; Visit Provider Registered Nurse
DX: Z12.31 Encounter for screening mammogram for malignant neoplasm of breast (principal)
CPT/HCPCS: 77063; 77067

== ENCOUNTER 2021-08-06 14:31 | Outpatient (CLI) | payer MEDICARE, SELFPAY ==
--- NOTE | 2021-08-06 14:37 | MM_ITS ---
WS: [id number] LEFT 3D TOMOSYNTHESIS DIGITAL MAMMOGRAPHY WITH CAD CLINICAL INFORMATION: 8 MM ASYMMETRIC DENISTY COMPARISON: July 14, 2021 TECHNIQUE: 2 views of the left breast were obtained. FINDINGS: Scattered fibroglandular densities of the left breast. Previously described 8 mm asymmetric density a long the posterior nipple line anterior breast is no longer seen today. This resolves on the spot com pression views. Incidental punctate and lucent centered calcifications. Recommend return to annual sc reening mammography. MM/[place] [id number] IMPRESSION: BI-RADS: 2-Benign FOLLOW UP: 1 Year Follow-up Recommend return to annual screening mammography.
== END 2021-08-06 14:32 | disposition home or self-care (01) ==
LOC: RAD 14:33
PROVIDERS: PCP Registered Nurse; Visit Provider Registered Nurse
DX: N64.89 Other specified disorders of breast (principal)
CPT/HCPCS: 77061

== ENCOUNTER → 2021-08-25 11:46 | Outpatient (BNVA) | payer MEDICARE, SELFPAY | PROVIDERS: PCP Registered Nurse; Visit Provider Registered Nurse | DX: Z01.419 Encounter for gynecological examination (general) (routine) without abnormal findings (principal) | CPT/HCPCS: 87624 ==

== ENCOUNTER → 2021-10-13 09:23 | Outpatient (BNVA) | payer MEDICARE, SELFPAY | PROVIDERS: PCP Registered Nurse; Visit Provider Psychiatry & Neurology Psychiatry | DX: F43.12 Post-traumatic stress disorder, chronic (principal); F60.3 Borderline personality disorder; F33.1 Major depressive disorder, recurrent, moderate | CPT/HCPCS: 99213 ==

== ENCOUNTER → 2021-10-17 09:11 | Outpatient (BNVA) | payer MEDICARE, SELFPAY | PROVIDERS: PCP Registered Nurse; Visit Provider Internal Medicine Cardiovascular Disease | DX: I25.10 Atherosclerotic heart disease of native coronary artery without angina pectoris (principal); I10 Essential (primary) hypertension; R07.9 Chest pain, unspecified; E78.2 Mixed hyperlipidemia; E03.9 Hypothyroidism, unspecified; I25.2 Old myocardial infarction | CPT/HCPCS: 93005; 99214 ==

== ENCOUNTER → 2021-11-13 10:32 | Outpatient (BNVA) | payer MEDICARE, SELFPAY | PROVIDERS: PCP Registered Nurse; Visit Provider Registered Nurse | DX: I10 Essential (primary) hypertension (principal); E55.9 Vitamin D deficiency, unspecified; E03.9 Hypothyroidism, unspecified; I25.10 Atherosclerotic heart disease of native coronary artery without angina pectoris; E53.8 Deficiency of other specified B group vitamins | CPT/HCPCS: 80053; 81000; 82306; 82607; 84443; 85025 ==

== ENCOUNTER 2022-02-06 07:21 | Day surgery (SDC) | payer MEDICARE, SELFPAY ==
[2022-02-05 09:17] VITALS: BMI 34.3
[2022-02-06 07:38] VITALS: BP 147/81; PULSE 73; RESP 18; TEMP 36.4; O2SAT 96
[2022-02-06] MEDS: sodium chloride 0.9% 1,000 ML 30 ML IV (07:48)
--- NOTE | 2022-02-06 08:07 | P.ANESASSM_ITS ---
Pre-Anesthetic Assessment Height/Weight: Height 1.5 m Weight 77.111 kg Temp Pulse Resp BP Pulse Ox O2 Del Method 97.5 F L 73 18 147/81 96 02/06/22 07:38 02/06/22 07:38 02/06/22 07:38 02/06/22 07:38 02/06/22 07:38 02/06/22 07:38 Preop Diagnosis: Screening Operation Date: 02/06/22 09:00 Proposed Procedures p Colonoscopy 23156,Z12.11(Not Applicable) - Pancho Dave MD Was Beta Gabriel taken within 24 hours: N/A Last intake: Intake Last Liquid Date 02/05/22 Last Liquid Time 20:00 Last Solid Date 02/04/22 Last Solid Time 19:00 Social No alcohol and No tobacco Exam alert, oriented x 3, clear to auscultation bilaterally and regular rate & rhythm Airway Submandibular: within normal limits Cervical ROM: Other Mallampati: Class II (Poor extension) Dentition: full History/ROS No significant history except as noted and No significant complaints CV/HEM Coronary Artery Disease (Hx stents. Last in 2008. No recent cardiac issues) and Myocardial Infarction None reported Hepatic None reported GI None reported Metabolic Thyroid [place] [facility] [place] Osteoarthritis/DJD Neuropsych Anxiety Anesthetic Plan ASA status: 3 Anesthesia: Anesthesia Evaluation and MAC Risk of > 500 ml blood loss (7ml/kg in children): No Medications/Allergies Home Medications Medication Instructions Recorded Confirmed Last Taken Type aspirin 81 mg tablet,delayed 81 mg PO BEDTIME 05/09/19 02/05/22 07/30/20 History release (Adult Aspirin Regimen) nitroglycerin 0.4 mg sublingual 0.4 mg sublingual Q5M PRN chest 07/04/20 02/05/22 Unknown Rx tablet pain #25 tabs CoQ-10 1 cap PO BEDTIME 07/31/20 02/05/22 02/04/22 History potassium gluconate 595 mg (99 mg) 595 mg PO BEDTIME 07/31/20 02/05/22 02/04/22 History tablet biotin 5 mg capsule 10 mg PO DAILY 01/22/21 02/05/22 02/04/22 History vitamin E 200 unit capsule 200 unit PO DAILY 04/16/21 02/05/22 02/04/22 History acetaminophen 500 mg tablet 500 mg PO DAILY PRN fever or pain 07/11/21 02/05/22 02/04/22 History (Tylenol Extra Strength) ascorbic acid (vitamin C) 500 mg 500 mg PO DAILY 07/11/21 02/05/22 02/04/22 History capsule atorvastatin 10 mg tablet 10 mg PO DAILY #90 tabs 10/29/21 02/05/22 02/04/22 Rx hydrochlorothiazide 12.5 mg tablet 12.5 mg PO QAM #90 tabs 11/17/21 02/05/22 02/04/22 Rx cyanocobalamin (vitamin B-12) 1,000 mcg PO DAILY 01/12/22 02/05/22 02/04/22 His tory 1,000 mcg capsule doxepin 50 mg capsule 50 mg PO BEDTIME #30 caps 01/12/22 02/05/22 02/04/22 Rx fluoxetine 20 mg capsule 80 mg PO QAM 30 days #120 caps 01/12/22 02/05/22 02/04/22 Rx magnesium 200 mg tablet 200 mg PO DAILY 01/12/22 02/05/22 02/04/22 History osteo biflex 1 tab PO DAILY 01/12/22 02/05/22 02/04/22 History levothyroxine 25 mcg tablet 25 mcg PO DAILY 02/05/22 02/05/22 02/06/22 History Allergies Allergy/AdvReac Type Severity Reaction Status Date / Time No Known Allergies Allergy Verified 02/06/22 09:06 Current Medications Generic Name Dose Route Start Last Admin Trade Name Freq PRN Reason Stop Dose Admin Sodium Chloride 1,000 mls @ 30 mls/hr 02/06/22 07:30 02/06/22 07:48 Sodium Chloride 0.9% IV 02/07/22 07:29 30 mls/hr .Q24H MARIO Administration PFSH Anesthesia Medical History Back pain of lumbosacral region with sciatica Edema Enrolled in chronic care management History of [place] (myocardial infarction) Hyperlipemia Psychiatric care Shortness of breath Vitamin B12 deficiency Vitamin D deficiency Family History Other No significant family history Social History (Updated 01/12/22 @ 10:49 by Alok Gillespie LPN) Smoking and tobacco status: never smoked Second hand smoke exposure: Yes (Once in a while.) Smoking risk assessment/counseling performed?: No Alcohol intake: former Desire information about alcohol rehabilitation?: No Counseling given: No Desire information about substance/drug rehabilitation?: No Counseling given: No Data Anesthesia Cardiac Studies: Sestamibi Stress Test (Cardiology) 08/06
--- NOTE | 2022-02-06 09:01 | P.HP_ITS ---
Same Day Surgery H&P Indication for Procedure/HPI DATE OF PROCEDURE: February 06, 2022 CHIEF COMPLAINT/INDICATIONFOR SURGICAL PROCEDURE: Screening colonoscopy PREOP DIAGNOSIS: Screening PLANNED PROCEDURE: Operation Date: 02/06/22 09:00 Proposed Procedures p Colonoscopy 16977,Z12.11(Not Applicable) - Pancho Dave MD This is a pleasant 60 years old female patient presented to my practice for screening colonoscopy, patient had a colonoscopy back in 2011 and was reported as normal per patient's description, she denies bleeding per rectum or history of colon polyps or colon cancer. ROS All systems have been reviewed negative except as for the above or per problem list. Medications/Allergies* Home Medications Medication Instructions Recorded Confirmed Type aspirin 81 mg tablet,delayed 81 mg PO BEDTIME 05/09/19 02/05/22 History release (Adult Aspirin Regimen) CoQ-10 1 cap PO BEDTIME 07/31/20 02/05/22 History potassium gluconate 595 mg (99 mg) 595 mg PO BEDTIME 07/31/20 02/05/22 History tablet biotin 5 mg capsule 10 mg PO DAILY 01/22/21 02/05/22 History vitamin E 200 unit capsule 200 unit PO DAILY 04/16/21 02/05/22 History acetaminophen 500 mg tablet 500 mg PO DAILY PRN fever or pain 07/11/21 02/05/22 History (Tylenol Extra Strength) ascorbic acid (vitamin C) 500 mg 500 mg PO DAILY 07/11/21 02/05/22 History capsule cyanocobalamin (vitamin B-12) 1,000 mcg PO DAILY 01/12/22 02/05/22 History 1,000 mcg capsule magnesium 200 mg tablet 200 mg PO DAILY 01/12/22 02/05/22 History osteo biflex 1 tab PO DAILY 01/12/22 02/05/22 History levothyroxine 25 mcg tablet 25 mcg PO DAILY 02/05/22 02/05/22 History Allergies/Adverse Reactions Allergy/AdvReac Type Severity Reaction Status Date / Time No Known Allergies Allergy Verified 02/06/22 09:06 Current Medications: Generic Name Dose Route Start Last Admin Trade Name Freq PRN Reason Stop Dose Admin Sodium Chloride 1,000 mls @ 30 mls/hr 02/06/22 07:30 02/06/22 07:48 Sodium Chloride 0.9% IV 02/07/22 07:29 30 mls/hr .Q24H MARIO Administration Pertinent History/Comorbid Conditions* Medical History (Updated 11/15/21 @ 21:28 by SAM Maldonado) Back pain of lumbosacral region with sciatica Edema Enrolled in chronic care management History of [place] (myocardial infarction) Hyperlipemia Psychiatric care Shortness of breath Vitamin B12 deficiency Vitamin D deficiency Family History (Updated 05/09/19 @ 15:17 by Radha Culp LPN) No significant family history Social History Smoking and tobacco status: never smoked Second hand smoke exposure: Yes (Once in a while.) Smoking risk assessment/counseling performed?: No Alcohol intake: former Desire information about alcohol rehabilitation?: No Counseling given: No Desire information about substance/drug rehabilitation?: No Counseling given: No Pertinent Exam Findings alert, oriented x 3, clear to auscultation bilaterally, regular rate & rhythm and procedure specific exam findings (Abdominal nontender nondistended soft) Recommendations Surgery/Procedure today (Colonoscopy with possible biopsy) Other Plans: Plan of care; After thorough history and physical examination and reviewing the chart, plan to perform screening colonoscopy. I discussed with the patient in details the risks,benefits,alternatives and indications.The risk of aspiration, bleeding, soft tissue injury, perforation of the colon ,missed lesions and other potential concomitant complications were explained to the patient in details,also the potential need for Laproscoy/Laparotomy to repair any related complications including but not limited to colectomy and or Closotomy.The patient understood this well and did agree to proceed. Rationale was carefully and clearly discussed with the patient.Appropriate informed consent have been reviewed and signed All questions have been answered and all concerns have been addressed to patient's satisfaction. Verbal and written Instructions were given to the patient for colonoscopy prep Coding Level of Care Code Acute Social Media Marketing Specialist for Mamie Beth
[2022-02-06 09:24] VITALS: BP 133/74; PULSE 66; RESP 16; TEMP 36.4; O2SAT 92
[2022-02-06 09:29] VITALS: BP 135/92; PULSE 73; RESP 18; O2SAT 95
--- NOTE | 2022-02-06 09:29 | ANE.PACU2 ---
Inpatient post-anesthesia follow up: Airway intact: Yes Vital signs: Temperature 97.6 F Pulse Rate 66 Respiratory Rate 16 Blood Pressure 133/74 Pulse Oximetry 92 Oxygen Delivery Me thod Room Air Oxygen Flow Rate Fraction of Inspir ed Oxygen Hydration adequate: Yes Nausea and vomiting: No Pain level: 1 Mental status: Baseline
[2022-02-06 09:39] VITALS: BP 160/86; PULSE 70; RESP 18; O2SAT 97
== END 2022-02-06 09:52 | disposition home or self-care (01) ==
PROVIDERS: PCP Registered Nurse; Visit Provider Surgery
PROC: 0DJD8ZZ Inspection of Lower Intestinal Tract, Via Natural or Artificial Opening Endoscopic (ICD-10-PCS; CPT 45378; principal; 2022-02-06 09:00)
DX: Z12.11 Encounter for screening for malignant neoplasm of colon (principal); Z79.82 Long term (current) use of aspirin; I25.2 Old myocardial infarction; I25.10 Atherosclerotic heart disease of native coronary artery without angina pectoris; Z95.5 Presence of coronary angioplasty implant and graft
CPT/HCPCS: G0121; J2704; J7030

== ENCOUNTER 2022-02-19 16:04 | Emergency (ER) | payer MEDICARE, SELFPAY ==
[2022-02-19] VITALS (61 sets, daily range): BP systolic 123–168; BP diastolic 60–78; PULSE 72–97; RESP 11–21; TEMP 36.6; O2SAT 92–97; BMI 39.4
--- NOTE | 2022-02-19 16:08 | W.ED.SEIZURE ---
HPI - Seizure General: Chief Complaint: Seizure Stated Complaint: seizures Time Seen by Provider: 02/19/22 16:06 History of Present Illness: HPI Narrative: Ms. Serna is a 61-year-old lady with complex past medical history but no reported seizure history presenting to the emergency department due to seizure. Onset of symptoms was just prior to arrival. She had a witnessed seizure while sitting watching TV which involved loss of consciousness, shaking, tongue biting, and loss of continence. Episode reportedly lasted approximately 10 minutes with postevent confusion. Patient does note generalized illness the past few days and difficulty with sleep secondary to chronic neck pain. No other specific changes in health, exacerbating, or alleviating factors identified. Onset (ago): minute(s) Description of Episode: loss of consciousness, tonic-clonic movement, bladder incontinence and post-event confusion Duration of episode: 10 Witnessed: Yes - by Bystander () Seizure History: No Place: Home Possible Precipitating Event: lack of sleep Associated symptoms: Reports no associated symptoms Review of Systems General: Reports: 10 or more systems reviewed and unremarkable except in HPI and below PFSH ED PFSH: Medical History Back pain of lumbosacral region with sciatica Edema Enrolled in chronic care management History of CT (myocardial infarction) Hyperlipemia Psychiatric care Shortness of breath Vitamin B12 deficiency Vitamin D deficiency Family History Other No significant family history Social History Smoking and tobacco status: never smoked Second hand smoke exposure: Yes (Once in a while.) Smoking risk assessment/counseling performed?: No Alcohol intake: former Desire information about alcohol rehabilitation?: No Counseling given: No Desire information about substance/drug rehabilitation?: No Counseling given: No Physical Exam Const: COMMON NORMALS: patient oriented x3 and alert GENERAL APPEARANCE: cooperative and well developed HENMT: COMMON NORMALS: normocephalic and atraumatic HEAD & SCALP: normocephalic and atraumatic OTHER: Small nonbleeding likely bite enrique to the right lateral tongue Eye: COMMON NORMALS: conjunctivae normal CONJUNCTIVA: Yes conjunctivae normal SCLERA: sclerae normal Neck/C-Spine: COMMON NORMALS: supple GENERAL: Yes trachea midline Resp: COMMON NORMALS: clear to auscultation bilaterally EFFORT & INSPECTION: Yes able to speak in complete sentences AUSCULTATION: clear to auscultation bilaterally Cardio: COMMON NORMALS: regular rate and regular rhythm RATE: regular rate RHYTHM: regular rhythm GI: COMMON NORMALS: Soft to palpation PALPATION: Yes Soft to palpation and No Tenderness to palpation present (GI) Extremity: GENERAL: Yes normal exam except as noted and No edema Neuro: COMMON NORMALS: patient oriented x3, CN's II-XII intact bilaterally, moves all extremities, no focal motor deficits and no sensory deficits noted SENSORIUM/ORIENTATION: Yes alert and No Orientation impaired Psych: COMMON NORMALS: mental status grossly normal and Normal thought process present THOUGHT PROCESS: Normal thought process present Course Vital Signs: Vital signs: Vital Signs Temperature 97.8 F 02/19/22 16:10 Pulse Rate 82 02/19/22 22:53 Respiratory Rate 18 02/19/22 22:53 Blood Pressure 149/66 02/19/22 22:53 Pulse Oximetry 95 02/19/22 22:53 Oxygen Delivery Me thod 02/19/22 18:00 MDM - Seizure MDM Narrative Medical decision making narrative: 61-year-old lady presenting with seizure-like episode and 2 days of generalized illness. On initial evaluation patient is neuro intact without evidence of acute abnormality. Vitals are satisfactory and patient is nontoxic. EKG notable for sinus rhythm with first-degree AV block and interventricular conduction delay. No STEMI. Hematologic panel largely unremarkable. Metabolic panel with perhaps mild evidence of dehydration, hypokalemia also noted. Transaminitis were similar to prior. Delta troponin is negative. CRP is negative and procalcitonin is also negative. Prolactin is negative. No evidence of urinary tract infection. COVID-negative. CT head negative for acute intracranial abnormality. CT cervical spine also negative for acute pathology. CT abdomen and pelvis without acute abnormality, mild fatty liver noted and incidental findings were discussed with patient. CTA performed within 6 hours of event and shows mild disease which was discussed with patient however no large vessel occlusion or evidence of hemorrhage The results of ED evaluation were discussed with the patient including possible additional evaluation. While I am not sure of the etiology of the patient's event this may be more orthostatic in nature as there is some evidence of dehydration and no other acute pathology is identified. It does not appear to need hospitalization at this time. I did discuss, given the patient's reported generalized symptoms and fever, additional evaluation with lumbar puncture which the patient declined at this time. I discussed prescriptions and/or symptomatic cares (if applicable) including appropriate and responsible use, followup plan, and return precautions. The patient verbalized understanding and felt safe for discharge. Medical Records Attestation: I reviewed the patient's medical records. Lab Data Attestation: I reviewed the patient's lab results. Result diagrams: 02/19/22 15:57 02/19/22 15:57 Labs: Radiology Impressions Head CT 02/19/22 16:48 IMPRESSION: No acute intracranial abnormality. Cervical Spine CT 02/19/22 17:14 IMPRESSION: No acute findings. Abdomen/Pelvis CT 02/19/22 20:51 IMPRESSION: 1. No acute abnormality in the abdomen or pelvis. 2. Mild fatty infiltration of the liver. 3. Incidental/nonacute findings are listed in the report. Head/Neck CTA 02/19/22 20:51 IMPRESSION: No large vessel stenosis or occlusion. IMPRESSION: Mild stenosis at the origins of the internal carotid arteries. No severe stenosis or occlusion. REFERENCES: NASCET CRITERIA. The degree of stenosis in the cervical segment of the internal carotid artery is based on NASCET criteria. Normal is no stenosis. Mild is less than 50% stenosis. Moderate is 50-69% stenosis. Severe is 70% to 99% stenosis. Total occlusion is no detectable patent lumen. Laboratory Results WBC 8.7 10^3/uL (4.0-10.0) 02/19/22 15:57 RBC 4.28 10^6/uL (4.1-5.3) 02/19/22 15:57 Hgb 14.2 g/dL (11.5-15.3) 02/19/22 15:57 Hct 39.6 % (37.0-47.0) 02/19/22 15:57 MCV 92.5 fl (81-99) 02/19/22 15:57 MCH 33.2 pg (28.0-34.0) 02/19/22 15:57 MCHC 35.9 g/dL (30.0-36.0) 02/19/22 15:57 RDW 11.8 % (12.1-15.1) L 02/19/22 15:57 Plt Count 207 10^3/cmm (130-400) 02/19/22 15:57 MPV 10.1 fL (7.4-10.4) 02/19/22 15:57 Neut % (Auto) 76.6 % 02/19/22 15:57 Lymph % (Auto) 16.8 % 02/19/22 15:57 [place] % (Auto) 5.6 % 02/19/22 15:57 Eos % (Auto) 0.2 % 02/19/22 15:57 Baso % (Auto) 0.3 % 02/19/22 15:57 Neut # (Auto) 6.65 10^3/uL (1.8-7.7) 02/19/22 15:57 Lymph # (Auto) 1.5 10^3/uL (0.8-4.8) 02/19/22 15:57 [place] # (Auto) 0.5 10^3/uL (0.2-0.9) 02/19/22 15:57 Eos # (Auto) 0.0 10^3/uL (0.0-0.8) 02/19/22 15:57 Baso # (Auto) 0.0 10^3/uL (0.0-0.1) 02/19/22 15:57 Nucleated RBC % (auto) 0 % 02/19/22 15:57 Nucleated RBCs # 0.0 /100WBC 02/19/22 15:57 Sodium 134 mmol/L (136-145) L 02/19/22 15:57 Potassium 3.1 mmol/L (3.5-5.1) L 02/19/22 15:57 Chloride 99 mmol/L (98-107) 02/19/22 15:57 Carbon Dioxide 23 mmol/L (22-29) 02/19/22 15:57 Anion Gap 15.1 (5-19) 02/19/22 15:57 BUN 10 mg/dL (8-23) 02/19/22 15:57 Creatinine 0.6 mg/dL (0.5-0.9) 02/19/22 15:57 GFR Calculation 101.0 mL/min (90-130) 02/19/22 15:57 Glucose 134 mg/dL (65-115) H 02/19/22 15:57 Calculated Osmolality 279 mOsm/kg (285-295) L 02/19/22 15:57 Lactate 1.6 mmol/L (0.5-2.2) 02/19/22 15:57 Calcium 9.3 mg/dL (8.5-10.5) 02/19/22 15:57 Magnesium 2.1 mg/dL (1.7-2.3) 02/19/22 15:57 Total Bilirubin 0.4 mg/dL (0.15-1.2) 02/19/22 15:57 AST 35 U/L (0-32) H 02/19/22 15:57 ALT 64 U/L (0-33) H 02/19/22 15:57 Alkaline Phosphatase 132 U/L (35-105) H 02/19/22 15:57 Troponin T Baseline 6 ng/L (0-10) 02/19/22 15:57 Troponin T 120 Minute 6.00 ng/L (0-10) 02/19/22 17:49 Delta Troponin T 0 ABS# (0-10) 02/19/22 17:49 C-Reactive Protein 3.5 mg/L (0.0-4.9) 02/19/22 17:49 Total Protein 7.1 g/dL (6.6-8.7) 02/19/22 15:57 Albumin 4.3 g/dL (3.5-5.2) 02/19/22 15:57 Globulin 2.8 g/dL (1.3-4.6) 02/19/22 15:57 Procalcitonin 0.04 ng/mL (0-0.5) 02/19/22 15:57 TSH 2.63 uIU/mL (0.27-4.20) 02/19/22 15:57 Prolactin 6.34 ng/mL (4.8-23.3) 02/19/22 15:57 Urine Color Yellow (Yellow) 02/19/22 19:49 Urine Appearance Clear (CLEAR) 02/19/22 19:49 Urine pH 6 (5-7) 02/19/22 19:49 Ur Specific [place] 1.015 (1.005-1.030) 02/19/22 19:49 Urine Protein Neg (Negative) 02/19/22 19:49 Urine Glucose (UA) Norm (Normal) 02/19/22 19:49 Urine Ketones Negative (Negative) 02/19/22 19:49 Urine Blood Neg (Negative) 02/19/22 19:49 Urine Nitrate Negative (Negative) 02/19/22 19:49 Urine Bilirubin Neg (Negative) 02/19/22 19:49 Urine Urobilinogen Norm mg/dL (Negative) 02/19/22 19:49 Ur Leukocyte Esterase Negative (Negative) 02/19/22 19:49 SARS-CoV-2 Ag (Rapid) negative (Negative) 02/19/22 19:09 Discharge Plan Discharge Patient Disposition: Home Clinical Impression: Seizure-like activity, Dehydration, Acute viral syndrome, Transaminitis, Nausea & vomiting, Dizziness Condition: Stable Prescriptions: New Valium 2 mg tablet 2 mg PO TID PRN (Reason: muscle spasm) Qty: 10 0RF ondansetron 4 mg tablet,disintegrating 4 mg PO Q8H PRN (Reason: nausea and vomiting) Qty: 15 0RF No Action acetaminophen [Tylenol Extra Strength] 500 mg tablet 500 mg PO DAILY PRN (Reason: fever or pain) nitroglycerin 0.4 mg tablet, sublingual 0.4 mg sublingual Q5M PRN (Reason: chest pain) Qty: 25 3RF Rx Instructions: do not exceed 3 doses per episode aspirin [Adult Aspirin Regimen] 81 mg tablet,delayed release (DR/EC) 81 mg PO BEDTIME magnesium 200 mg tablet 200 mg PO DAILY cyanocobalamin (vitamin B-12) 1,000 mcg capsule 1,000 mcg PO DAILY fluoxetine 20 mg capsule 80 mg PO QAM 30 Days Qty: 120 2RF doxepin 50 mg capsule 50 mg PO BEDTIME Qty: 30 2RF atorvastatin 10 mg tablet 10 mg PO DAILY Qty: 90 3RF hydrochlorothiazide 12.5 mg tablet 12.5 mg PO QAM Qty: 90 1RF potassium gluconate 595 mg (99 mg) Tablet 595 mg PO BEDTIME levothyroxine 25 mcg tablet 25 mcg PO DAILY vitamin E 268 mg (400 unit) Capsule 268 mg PO DAILY Osteo Bi-Flex 250-200 mg Tablet 2 tab PO TID Rx Instructions: give after food/meal Co Q-10 75 mg Capsule 75 mg PO BEDTIME Biotene Dry Mouth Oral Rinse Mouthwash 15 ml MUCOUS MEMBRANE 5XD PRN (Reason: Dry Mouth) Rx Instructions: swish for 15-30 secs , then spit out; do not swallow Vitamin D3 25 mcg (1,000 unit) Tablet 25 mcg PO DAILY Discharge Orders: Discharge ED (Routine); Ordered 02/19/22 Ordered By: Alok Rodriguez Other Ambulatory Orders: ECG holter monitor 3 Days (Routine) Timeframe: 3 Days Facility: [facility] - Location: Radiology Ordered By: Alok Rodriguez Referrals: Lion Powers FNP [Primary Care Provider] - Discharge Diet: Usual diet Discharge Activity: Increase activity as tolerated Patient Instructions: Diazepam (By mouth), Dehydration (ED), Dizziness (ED), New-Onset Seizure in Adults (ED), Pain Management Activity Restrictions/Additional Instructions: Thank you for visiting the emergency department. You were seen and evaluated for generalized illness including witnessed seizure-like episode. The exact cause of the symptoms is unclear. Please follow-up with a primary care provider. Given possible seizure do not drive or operate machinery, do not bathe in a bathtub or swim in a swimming pool, do not cook over open flame, do not otherwise perform tasks which could be dangerous if you have another episode. Return to the emergency department for any new neurologic symptoms, recurrence of seizure-like episode, inability to tolerate oral intake, or anything else that you are concerned about a feel needs emergency department evaluation. Coding Level of Care Code ED Director Maternal Child for Mamie Beth Exam Comprehensive
--- NOTE | 2022-02-19 16:48 | CTR_ITS ---
PROCEDURE INFORMATION: Exam: CT Head Without Contrast Exam date and time: 02/19/2022 5:15 PM Age: 61 years old Clinical indication: Condition or disease; Convulsions or seizures; Unspecified; Additional info: Seizure, new TECHNIQUE: Imaging protocol: Computed tomography of the head without contrast. Radiation optimization: All CT scans at this facility use at least one of these dose optimization techniques: automated exposure control; mA and/or kV adjustment per patient size (includes targeted exams where dose is matched to clinical indication); or iterative reconstruction. COMPARISON: CT cervical spine w con [id number] 03/22/2018 10:39 AM RADIATION DOSE METRICS: Total DLP (mGy-cm): 1065.58 FINDINGS: Brain: No hemorrhage. No edema. Mild diffuse cerebral atrophy. No significant white matter disease. No mass effect. Cerebral ventricles: No ventriculomegaly. Paranasal sinuses: Visualized sinuses are unremarkable. No fluid levels. Mastoid air cells: Visualized mastoid air cells are well aerated. Bones/joints: Unremarkable. No acute fracture. Soft tissues: Unremarkable. CT/CT head wo con* [id number] IMPRESSION: No acute intracranial abnormality.
--- NOTE | 2022-02-19 17:01 | ECG_ITS ---
[facility] Test Date: 2022-02-19 Pat Name: Renetta Serna Department: Room: Gender: Female Any Commodity Buyer: : 1960 Requested By: Alok Rodriguez Order Number: [id number] Joao MD: Randolph Stewart M.D. Measurements Intervals Trail Rate: 81 P: 50 NH: 222 QRS: -62 QRSD: 105 T: 24 QT: 403 QTc: 470 Interpretive Statements SINUS RHYTHM WITH FIRST DEGREE AV BLOCK LOW QRS VOLTAGE IN PRECORDIAL LEADS [QRS DEFLECTION < 1.0 mV IN CHEST LEADS] INCOMPLETE RIGHT BUNDLE BRANCH BLOCK [90+ ms QRS DURATION, TERMINAL R IN V1/V2, 40+ ms S IN I/aVL/V4/V5/V6] INFERIOR MYOCARDIAL INFARCTION , PROBABLY OLD [40+ ms Q WAVE AND/OR ST/T ABNORMALITY IN II/aVF] ANTEROSEPTAL MYOCARDIAL INFARCTION , OF INDETERMINATE AGE [40+ ms Q WAVE IN V1-V4] No previous ECG available for comparison Electronically Signed On 02-19-2022 17:29:10 CDT by Randolph Stewart M.D. [id number]
--- NOTE | 2022-02-19 17:14 | CTR_ITS ---
PROCEDURE INFORMATION: Exam: CT Cervical Spine Without Contrast Exam date and time: 02/19/2022 5:48 PM Age: 61 years old Clinical indication: Injury or trauma; Other: Fall with new onset seizure; Additional info: Neck pain TECHNIQUE: Imaging protocol: Computed tomography of the cervical spine without contrast. Radiation optimization: All CT scans at this facility use at least one of these dose optimization techniques: automated exposure control; mA and/or kV adjustment per patient size (includes targeted exams where dose is matched to clinical indication); or iterative reconstruction. COMPARISON: CT cervical spine w con [id number] 03/22/2018 10:39 AM RADIATION DOSE METRICS: Total DLP (mGy-cm): 245.06 FINDINGS: Bones/joints: No acute fracture. Normal alignment. No significant disc protrusion. No severe spinal canal stenosis. Lungs: Lung apices are normal. Soft tissues: Unremarkable. CT/CT cervical spin wo con* [id number] IMPRESSION: No acute findings.
[2022-02-19 17:25] LABS: Basophils % 0.3 %; Eosinophils % 0.2 %; Hematocrit 39.6 % (37.0-47.0); Hemoglobin 14.2 g/dL (11.5-15.3); Lymphocytes # 1.5 10^3/uL (0.8-4.8); Lymphocytes % 16.8 %; Mean Corpuscular HGB Conc 35.9 g/dL (30.0-36.0); Mean Corpuscular Hemoglobin 33.2 pg (28.0-34.0); Mean Corpuscular Volume 92.5 fl (81-99); Mean Platelet Volume 10.1 fL (7.4-10.4); Monocytes # 0.5 10^3/uL (0.2-0.9); Monocytes % 5.6 %; Neutrophils # 6.65 10^3/uL (1.8-7.7); Neutrophils % 76.6 %; Nucleated Red Blood Cells % 0 %; Platelet Count 207 10^3/cmm (130-400); Red Blood Count 4.28 10^6/uL (4.1-5.3); Red Cell Distribution Width 11.8 % (12.1-15.1); White Blood Count 8.7 10^3/uL (4.0-10.0)
[2022-02-19 17:38] LABS: Lactate (Lactic Acid level) 1.6 mmol/L (0.5-2.2)
[2022-02-19 17:52] LABS: Procalcitonin 0.04 ng/mL (0-0.5); Thyroid Stimulating Hormone 2.63 uIU/mL (0.27-4.20)
[2022-02-19] MEDS: morphine 4 mg/mL SDV 1 mL IVP (17:58)
[2022-02-19 18:04] LABS: Alanine Aminotransferase 64 U/L (0-33); Albumin Level 4.3 g/dL (3.5-5.2); Alkaline Phosphatase 132 U/L (35-105); Anion Gap 15.1 (5-19); Aspartate Amino Transferase 35 U/L (0-32); Blood Urea Nitrogen 10 mg/dL (8-23); C Reactive Protein 4.8 mg/L (0.0-4.9); Calcium 9.3 mg/dL (8.5-10.5); Carbon Dioxide 23 mmol/L (22-29); Chloride 99 mmol/L (98-107); Globulin 2.8 g/dL (1.3-4.6); Glucose 134 mg/dL (65-115); Magnesium 2.1 mg/dL (1.7-2.3); Osmolality Calculated 279 mOsm/kg (285-295); Potassium 3.1 mmol/L (3.5-5.1); Sodium 134 mmol/L (136-145); Total Bilirubin 0.4 mg/dL (0.15-1.2); Total Protein 7.1 g/dL (6.6-8.7)
[2022-02-19 18:33] LABS: Prolactin 6.34 ng/mL (4.8-23.3)
[2022-02-19] MEDS: potassium chloride ER 20 mEq Tablet 40 MEQ PO (18:45)
[2022-02-19 18:46] LABS: Troponin(5th) Baseline 6 ng/L (0-10)
[2022-02-19 18:47] LABS: Troponin 5 2HR Delta 0 ABS# (0-10)
[2022-02-19 19:33] LABS: SARS Covid-2 Antigen negative (Negative)
[2022-02-19 20:07] LABS: Add Urine Microscopic? NO; Charge for UA Resulting for Rev
--- NOTE | 2022-02-19 20:08 | ECG_ITS ---
[facility] Test Date: 2022-02-19 Pat Name: Renetta Serna Department: Room: Gender: Female Resident Care Director: : 1960 Requested By: Alok Rodriguez Order Number: [id number] Joao MD: Jorge Dutton M.D. Measurements Intervals [place] Rate: 76 P: 53 [place]: 222 QRS: -58 QRSD: 109 T: -2 QT: 416 QTc: 470 Interpretive Statements SINUS RHYTHM WITH FIRST DEGREE AV BLOCK LOW QRS VOLTAGE [QRS DEFLECTION < 0.5/1.0 mV IN LIMB/CHEST LEADS] INCOMPLETE RIGHT BUNDLE BRANCH BLOCK [90+ ms QRS DURATION, TERMINAL R IN V1/V2, 40+ ms S IN I/aVL/V4/V5/V6] LEFT ANTERIOR FASCICULAR BLOCK [QRS AXIS <= -45, QR IN I, RS IN II] INFERIOR MYOCARDIAL INFARCTION , PROBABLY OLD [40+ ms Q WAVE AND/OR ST/T ABNORMALITY IN II/aVF] ANTEROSEPTAL MYOCARDIAL INFARCTION , OF INDETERMINATE AGE [40+ ms Q WAVE IN V1-V4] Compared to ECG 02/19/2022 17:01:08 Left anterior fascicular block now present Myocardial infarct finding still present Electronically Signed On 02-20-2022 16:51:03 CDT by Jorge Dutton M.D. [id number]
[2022-02-19] MEDS: sodium chloride 0.9% 1,000 ML 999 ML IV (20:14)
[2022-02-19 20:15] LABS: Bilirubin Urine Neg (Negative); Blood Urine Neg (Negative); Glucose Urine UA Norm (Normal); Ketones Urine Negative (Negative); Leukocyte Esterase Urine Negative (Negative); Nitrate Urine Negative (Negative); Protein Urine Neg (Negative); Specific Gravity, Urine 1.015 (1.005-1.030); Urine Appearance Clear (CLEAR); Urine Color Yellow (Yellow); Urobilinogen Urine Norm (Negative); pH Urine 6 (5-7)
[2022-02-19 20:44] LABS: C Reactive Protein 3.5 mg/L (0.0-4.9)
--- NOTE | 2022-02-19 20:51 | CTR_ITS ---
PROCEDURE INFORMATION: Exam: CTA Head With Contrast, Arteriography Exam date and time: 02/19/2022 9:05 PM Age: 61 years old Clinical indication: Dizziness and giddiness; Additional info: Seizure, L sided headache, dizzy TECHNIQUE: Imaging protocol: Computed tomographic angiography of the head with contrast. Exam focused on the arteries. 3D rendering (Not supervised by radiologist): MIP and/or 3D reconstructed images were created by the technologist. Radiation optimization: All CT scans at this facility use at least one of these dose optimization techniques: automated exposure control; mA and/or kV adjustment per patient size (includes targeted exams where dose is matched to clinical indication); or iterative reconstruction. Contrast material: OMNI 350; Contrast volume: 75 ml; Contrast route: INTRAVENOUS (IV); COMPARISON: CT head wo con* [id number] 02/19/2022 5:15 PM RADIATION DOSE METRICS: Total DLP (mGy-cm): 380.92 FINDINGS: ANTERIOR CIRCULATION: Right internal carotid artery: Intracranial segment is patent with no significant stenosis. No aneurysm. Right middle cerebral artery: No occlusion or significant stenosis. No aneurysm. Right anterior cerebral artery: No occlusion or significant stenosis. No aneurysm. Left internal carotid artery: Intracranial segment is patent with no significant stenosis. No aneurysm. Left middle cerebral artery: No occlusion or significant stenosis. No aneurysm. Left anterior cerebral artery: No occlusion or significant stenosis. No aneurysm. POSTERIOR CIRCULATION: Right vertebral artery: No occlusion or significant stenosis. No aneurysm. Left vertebral artery: No occlusion or significant stenosis. No aneurysm. Basilar artery: No occlusion or significant stenosis. No aneurysm. Right posterior cerebral artery: No occlusion or significant stenosis. No aneurysm. Left posterior cerebral artery: No occlusion or significant stenosis. No aneurysm. Brain: No definite mass, mass effect, or midline shift. Cerebral ventricles: No ventriculomegaly. Bones/joints: Unremarkable. No acute fracture. Soft tissues: Unremarkable. PROCEDURE INFORMATION: Exam: CTA Neck With Contrast Exam date and time: 02/19/2022 9:05 PM Age: 61 years old Clinical indication: Dizziness and giddiness; Additional info: Seizure, L sided headache, dizzy TECHNIQUE: Imaging protocol: Computed tomographic angiography of the neck with contrast. 3D rendering (Not supervised by radiologist): MIP and/or 3D reconstructed images were created by the technologist. Radiation optimization: All CT scans at this facility use at least one of these dose optimization techniques: automated exposure control; mA and/or kV adjustment per patient size (includes targeted exams where dose is matched to clinical indication); or iterative reconstruction. Contrast material: OMNI 350; Contrast volume: 75 ml; Contrast route: INTRAVENOUS (IV); COMPARISON: CT cervical spin wo con* [id number] 02/19/2022 5:20 PM RADIATION DOSE METRICS: Total DLP (mGy-cm): 380.92 FINDINGS: Right common carotid artery: No stenosis. No dissection or occlusion. Right internal carotid artery: Mild stenosis at the origin with less than 50% luminal narrowing. No dissection or occlusion. Right external carotid artery: No occlusion or stenosis of the origin. Left common carotid artery: No stenosis. No dissection or occlusion. Left internal carotid artery: Mild stenosis at the origin with less than 50% luminal narrowing. No dissection or occlusion. Left external carotid artery: No occlusion or stenosis of the origin. Right vertebral artery: No stenosis. No dissection or occlusion. Left vertebral artery: No stenosis. No dissection or occlusion. Soft tissues: Normal. No significant soft tissue swelling. Bones/joints: No acute fracture. CT/CT angio headneck* [id number] IMPRESSION: No large vessel stenosis or occlusion. IMPRESSION: Mild stenosis at the origins of the internal carotid arteries. No severe stenosis or occlusion. REFERENCES: NASCET CRITERIA. The degree of stenosis in the cervical segment of the internal carotid artery is based on NASCET criteria. Normal is no stenosis. Mild is less than 50% stenosis. Moderate is 50-69% stenosis. Severe is 70% to 99% stenosis. Total occlusion is no detectable patent lumen.
--- NOTE | 2022-02-19 20:51 | CTR_ITS ---
PROCEDURE INFORMATION: Exam: CT Abdomen And Pelvis With Contrast Exam date and time: 02/19/2022 9:16 PM Age: 61 years old Clinical indication: Nausea and vomiting; Abdominal pain; Prior surgery; Surgery date: 6+ months; Surgery type: Uterine ablation, tubal, leep procedure; Additional info: Recurrent n/v, pain TECHNIQUE: Imaging protocol: Computed tomography of the abdomen and pelvis with contrast. Sagittal and coronal reformatted images were created and reviewed. Radiation optimization: All CT scans at this facility use at least one of these dose optimization techniques: automated exposure control; mA and/or kV adjustment per patient size (includes targeted exams where dose is matched to clinical indication); or iterative reconstruction. Contrast material: OMNIPAQUE 350; Contrast volume: 95 ml; Contrast route: INTRAVENOUS (IV); COMPARISON: CT lumbar spine w con [id number] 03/22/2018 10:36 AM RADIATION DOSE METRICS: Total DLP (mGy-cm): 895.91 FINDINGS: Lungs: Dependent atelectasis in the lungs bilaterally. Pleural spaces: No pleural effusion. Heart: Moderate enlargement of the heart. Moderate atherosclerotic calcification in the coronary arteries. Liver: Diffuse, mildly decreased attenuation in the liver. Findings are consistent with mild fatty infiltration. Gallbladder and bile ducts: The gallbladder is unremarkable. No biliary ductal dilatation. Pancreas: Moderate atrophy of the pancreatic parenchyma. No pancreatic ductal dilatation. Spleen: The spleen is unremarkable. Adrenal glands: The right and left adrenal glands are unremarkable. Kidneys and ureters: The right and left kidneys are unremarkable. The right and left ureters are unremarkable. Stomach and bowel: No obstruction. No mucosal thickening. Appendix: The appendix is visualized and is unremarkable. No findings to suggest acute appendicitis. Intraperitoneal space: No free intraperitoneal air. No ascites. No loculated fluid collections to suggest an abscess. Vasculature: Mild atherosclerotic changes in the visualized arteries. No evidence for aortic aneurysm or aortic dissection. Hepatic veins, portal veins, splenic vein, and SMV are patent. Lymph nodes: No lymphadenopathy. Urinary bladder: The bladder is unremarkable. Reproductive: The uterus, right ovary, and left ovary are unremarkable. Bones/joints: Mild degenerative changes at both the right and left hips. Multilevel degenerative changes of varying severity in the visualized spine. Post-surgical changes consistent with previous spine fusion from L4-L5. Grade 1 anterolisthesis of L4 on L5. Osseous findings are stable. Soft tissues: No acute abnormality in the extra-abdominal soft tissues. CT/CT abdomen pelvis w con* [id number] IMPRESSION: 1. No acute abnormality in the abdomen or pelvis. 2. Mild fatty infiltration of the liver. 3. Incidental/nonacute findings are listed in the report.
[2022-02-19] MEDS: iohexol 350 mg/mL 100 mL Btl IV (20:54)
[2022-02-19] MEDS: oxyCODONE 5 mg IR Tab/Cap PO (20:56)
[2022-02-19] MEDS: ondansetron 2 mg/ML SDV 2 mL 4 MG IVP (22:50)
[2022-02-19] MEDS: diazePAM 2 mg Tablet PO (22:50)
== END 2022-02-19 23:17 | disposition home or self-care (01) ==
PROVIDERS: Emergency Provider Emergency Medicine; PCP Registered Nurse
DX: R56.9 Unspecified convulsions (principal); E86.0 Dehydration; B34.9 Viral infection, unspecified; R74.01 Elevation of levels of liver transaminase levels; R11.2 Nausea with vomiting, unspecified; R42 Dizziness and giddiness; Z79.82 Long term (current) use of aspirin; Z20.822 Contact with and (suspected) exposure to COVID-19; I25.2 Old myocardial infarction; E78.5 Hyperlipidemia, unspecified; Z77.22 Contact with and (suspected) exposure to environmental tobacco smoke (acute) (chronic)
CPT/HCPCS: 36415; 70450; 70496; 70498; 72125; 74177; 80053; 81003; 83605; 83735; 84145; 84146; 84443; 84484; 85025; 86140; 87040; 87426; 93005; 96365; 96375; 99285; J2270; J2405; J3475; J7030; Q9967

== ENCOUNTER → 2022-02-23 15:55 | Outpatient (BNVA) | payer MEDICARE, SELFPAY | PROVIDERS: PCP Registered Nurse; Visit Provider Surgery | DX: Z09 Encounter for follow-up examination after completed treatment for conditions other than malignant neoplasm (principal) | CPT/HCPCS: 99212 ==

== ENCOUNTER → 2022-02-25 10:55 | Outpatient (BNVA) | payer MEDICARE, SELFPAY | PROVIDERS: PCP Registered Nurse; Visit Provider Registered Nurse | DX: E87.6 Hypokalemia (principal) | CPT/HCPCS: 80053 ==

== ENCOUNTER → 2022-04-01 10:24 | Outpatient (BNVA) | payer MEDICARE, SELFPAY | PROVIDERS: PCP Registered Nurse; Visit Provider Internal Medicine Cardiovascular Disease | DX: I25.10 Atherosclerotic heart disease of native coronary artery without angina pectoris (principal); I10 Essential (primary) hypertension; E78.2 Mixed hyperlipidemia; E03.9 Hypothyroidism, unspecified; I25.2 Old myocardial infarction | CPT/HCPCS: 99214 ==

== ENCOUNTER → 2022-12-15 14:57 | Outpatient (BNVA) | payer MEDICARE, SELFPAY | PROVIDERS: PCP Registered Nurse; Visit Provider Internal Medicine Cardiovascular Disease | DX: R07.9 Chest pain, unspecified (principal); I25.10 Atherosclerotic heart disease of native coronary artery without angina pectoris; I10 Essential (primary) hypertension; E78.2 Mixed hyperlipidemia; E03.9 Hypothyroidism, unspecified | CPT/HCPCS: 99214 ==

== ENCOUNTER → 2023-03-16 10:50 | Outpatient (BNVA) | payer MEDICARE, SELFPAY | PROVIDERS: PCP Registered Nurse; Visit Provider Registered Nurse | DX: E78.5 Hyperlipidemia, unspecified (principal); E03.9 Hypothyroidism, unspecified | CPT/HCPCS: 80053; 80061; 84443; 85025 ==

== ENCOUNTER 2023-08-11 09:22 | Outpatient (CLI) | payer MEDICARE, SELFPAY ==
--- NOTE | 2023-08-11 09:30 | MM_ITS ---
WS: [id number] Bilateral screening 3D tomosynthesis digital mammogram, 08/11/2023 Clinical Data: Z12.39 - Encounter for other screening for malignant neop... Comparison: 08/06/2021, 07/14/2021, 03/21/2020, 11/24/2017, 10/01/2016. Findings: The breast parenchymal pattern shows fibroglandular tissue. No spiculated masses or clustered calcifi cations are seen. There are no secondary signs of carcinoma. Impression: 1. Negative bilateral mammogram unchanged. 2. Recommend annual screening mammograms. MM/[place] [id number] BIRADS: 1-Negative FOLLOW UP: 1 Year Follow-up The CAD dry cleaning checker was used.
== END 2023-08-11 09:23 | disposition home or self-care (01) ==
LOC: MOBLMAM 09:34
PROVIDERS: PCP Registered Nurse; Visit Provider Registered Nurse
DX: Z12.31 Encounter for screening mammogram for malignant neoplasm of breast (principal)
CPT/HCPCS: 77063; 77067

== ENCOUNTER → 2024-02-04 10:59 | Outpatient (BNVA) | payer MEDICARE, SELFPAY | PROVIDERS: PCP Registered Nurse; Visit Provider Internal Medicine Cardiovascular Disease | DX: I25.10 Atherosclerotic heart disease of native coronary artery without angina pectoris (principal); E78.2 Mixed hyperlipidemia | CPT/HCPCS: 99214 ==

== ENCOUNTER 2024-03-28 07:36 | Outpatient (CLI) | payer MEDICARE, SELFPAY ==
--- NOTE | 2024-03-28 | ECG_ITS ---
[facility] Test Date: 2024-03-28 Pat Name: Renetta Serna Department: Room: Gender: Female Helper Coordinator: : 1960 Requested By: Gino Colunga Order Number: [id number] Reading MD: GINO COLUNGA Interpretive Statements Lung unchanged pre/post procedure; Intraprocedure shortess of breath; Symptoms resoled by discharge NOTE: Please note that this is the electrocardiogram portion of the Lexiscan/Sestamibi stress test. The perfusion scan will be documented separately. DATA: Baseline heart rate was 62 beats per minute. Baseline blood pressure was 145/76 millimeters of mercury. Target heart rate was 1 55. Maximum heart rate achieved was 127. which was 81% of the predicted target heart rate. Maximum blood pressure was 168/109 millimeters of mercury. The reason for ending the test was completion of the protocol. The patient did not experience any symptoms. ELECTROCARDIOGRAM: BASELINE: Sinus rhythm. Left axis. Possible old anterior myocardial infarction, low amplitude, otherwise, no ST-T changes suggestive of ischemia noted. No arrhythmia noted. EXERCISE: After Lexiscan injection, no ST-T changes suggestive of ischemic noted. No arrhythmia noted. CONCLUSION: Please note due to baseline abnormality of the EKG specificity and sensitivity of the EKG portion of LexiScan MIBI stress test will be low 1. [EKG not suggestive of ischemia] 2. [Lexiscan injection unremarkable]. 3. Perfusion scan will be documented separately. [] Electronically Signed On 04-04-2024 23:47:59 [employer]PONDER by GINO COLUNGA [email or web address]
--- NOTE | 2024-03-28 07:43 | NMCV_ITS ---
NM mani perf SPECT r/s* [id number] Renetta Serna Age: 63 Gender: F : 1960 Exam Date: 03/28/2024 08:47 Ordering Phys: Gino Colunga MD ([email or web address]) Technologist: NELLY Bazan Exam Location: [facility] Indications: cp STRESS TEST Please see separate stress test report in [facility] for full findings IMAGE PROTOCOL Rest/Stress 1 Lexiscan Day Radiopharmaceutical Dose (mCi) Administration Site Administered by Rest: Tc-99m 10.4 IV NELLY Willis Sestamibi Stress:Tc-99m 33 IV NELLY Willis Sestamibi Rest: 28-Mar-2024 60 Discovery 630 Stress: 28-Mar-2024 30 Discovery 630 0.4mg Lexiscan. Images obtained in supine and prone position. SPECT RESULTS Technical Quality: Good Raw Data Analysis: Normal Image Corrections: No attenuation or motion correction applied Summed Stress Score: 9 Summed Rest Score: 11 Summed Difference Score: 0 PERFUSION FINDINGS Large area of fixed perfusion defect noted from basal to distal lateral wall suggestive of old myoardial infarction vs scaring FUNCTIONAL RESULTS (calculated via Gated SPECT) Stress Image LV EF (%): 68 Stress EDV (mL):60 TID: 0.97 Stress ESV (mL):19 FUNCTIONAL FINDINGS: Lateral wall akinesis with normal function of LV IMPRESSIONS This study is negative for ischemia , however large area of old myocardial infarction vs scarring noted in the lateral wall Gino Colunga MD (Electronically Signed) Final Date: 29 March 2024 00:04 S
[2024-03-28 07:53] VITALS: BMI 30.2
[2024-03-28] MEDS: regadenoson 0.4 Mg/5 ml Syringe IVP (09:07)
[2024-03-28] MEDS: ondansetron 2 mg/ML SDV 2 mL 4 MG IVP (09:17)
[2024-03-28] MEDS: aminophylline 25 mg/mL SDV 20 mL IVP (09:19)
[2024-03-28 09:26] VITALS: BP 140/88; PULSE 74
== END 2024-03-28 07:37 | disposition home or self-care (01) ==
PROVIDERS: PCP Registered Nurse; Visit Provider Internal Medicine Cardiovascular Disease
DX: I20.0 Unstable angina (principal); R06.02 Shortness of breath; R94.39 Abnormal result of other cardiovascular function study
CPT/HCPCS: 36415; 78452; 93017; 96374; A9500; J0280; J2405; J2785

== ENCOUNTER 2024-03-28 12:57 | Outpatient (CLI) | payer MEDICARE, SELFPAY ==
--- NOTE | 2024-03-28 13:30 | USCV_ITS ---
Renetta Serna Age: 63 Gender: F : 1960 Exam Date: 03/28/2024 13:45 Ordering Phys: Gino Colunga MD ([email or web address]) Technologist: CT Exam Location: [facility] [place] Indication: BP: 130 / 80 HR: 71 Rhythm: Sinus Technical Quality: Adequate MEASUREMENTS (Male / Female) Normal Values 2D ECHO LVOT Diameter 2.1 cm LV Ejection Fraction MOD 4C 62.0 % LV Ejection Fraction MOD 2C 66.3 % LV Ejection Fraction 2C AL 66.4 % LA Diameter 2.3 cm RA Systolic Volume 4C AL 29.9 ml RA Systolic Volume 4C MOD 29.6 ml LA Sys Volume AL 38.0 cm cubed LA Sys Volume Index AL 21.8 cm cubed/m squared Aorta at Sinotubular Diameter 2.7 cm IVC Diameter 1.8 cm M-MODE LA Ao Ratio MM 1.0 AV Cusp Separation MM 1.6 cm DOPPLER AV Peak Velocity 120.0 cm/s LVOT Peak Velocity 113.0 cm/s AV Area Cont Eq vti 3.3 cm squared AV Area Cont Eq pk 3.2 cm squared MV Peak Velocity 118.0 cm/s MV Area PHT 2.6 cm squared Mitral E to A Ratio 0.6 TV Peak Velocity 146.5 cm/s TR Peak Velocity 149.5 cm/s TR Peak Gradient 8.9 mmHg TR Mean Velocity 84.0 cm/s TR Mean Gradient 3.5 mmHg TR Velocity Time Integral 23.2 cm TV Peak E Velocity 66.0 cm/s PV Peak Velocity 93.0 cm/s FINDINGS Left Ventricle Normal left ventricular size, systolic function and wall thickness, with no regional wall motion abnormalities. Left ventricular ejection fraction is estimated at 60 %. Grade I/IV diastolic dysfunction (abnormal relaxation filling pattern), normal to mildly elevated filling pressures. Right Ventricle The right ventricle is normal in size and function. Right Atrium The right atrium is normal in size. Left Atrium The left atrium is normal in size. Mitral Valve Thickened mitral valve. Mild mitral valve regurgitation. Aortic Valve Structurally normal aortic valve without significant sclerosis or stenosis. There is no aortic regurgitation. Tricuspid Valve Structurally normal tricuspid valve without significant stenosis or regurgitation. Pulmonic Valve Structurally normal pulmonic valve without significant stenosis. There is no pulmonic regurgitation. Pericardium Normal pericardium without effusion. Aorta Normal ascending aorta dimension. IVC The inferior vena cava appears normal. CONCLUSIONS Normal left ventricular size, systolic function and wall thickness, with no regional wall motion abnormalities. Left ventricular ejection fraction is estimated at 60 %. Grade I/IV diastolic dysfunction (abnormal relaxation filling pattern), normal to mildly elevated filling pressures. No significant valve abnormalities. There is no pericardial effusion. Right atrial pressure is around 5 mm of mercury. Gino Colunga MD (Electronically Signed) Final Date: 29 March 2024 01:08 S
== END 2024-03-28 12:58 | disposition home or self-care (01) ==
LOC: RAD 13:01
PROVIDERS: PCP Registered Nurse; Visit Provider Internal Medicine Cardiovascular Disease
DX: I50.30 Unspecified diastolic (congestive) heart failure (principal); I34.81 Nonrheumatic mitral (valve) annulus calcification; R06.09 Other forms of dyspnea
CPT/HCPCS: 93306

== ENCOUNTER → 2024-06-08 10:53 | Outpatient (BNVA) | payer MEDICARE, SELFPAY | PROVIDERS: PCP Registered Nurse; Visit Provider Registered Nurse | DX: E03.9 Hypothyroidism, unspecified (principal); I25.10 Atherosclerotic heart disease of native coronary artery without angina pectoris | CPT/HCPCS: 80053; 80061; 84439; 84443; 85025 ==

== ENCOUNTER → 2024-09-14 10:58 | Outpatient (BNVA) | payer MEDICARE, SELFPAY | PROVIDERS: PCP Registered Nurse; Referring Provider Registered Nurse; Visit Provider Surgery | DX: R13.10 Dysphagia, unspecified (principal) | CPT/HCPCS: 99204 ==

== ENCOUNTER 2024-09-28 08:08 | Day surgery (SDC) | payer MEDICARE, SELFPAY ==
[2024-09-28 08:28] VITALS: BP 150/77; PULSE 73; RESP 16; TEMP 36.1; O2SAT 96; BMI 30.2
--- NOTE | 2024-09-28 08:30 | W.PM.OPSUD ---
Surgery/Procedure H&P Update DATE OF PROCEDURE: September 28, 2024 DATE H&P PERFORMED: 09/14/24 H&P UPDATE INFORMATION: I have reviewed H&P completed within last 30 days, I have examined patient prior to procedure, No changes to prior documentation, H&P is in [facility] EMR on date indicated and Risks and benefits of the procedure reviewed PLANNED PROCEDURE: Operation Date: 09/28/24 09:55 Proposed Procedures p EGD Dilation W/ Balloon 48366 K21.9(Not Applicable) - Ponce Negro MD
[2024-09-28] MEDS: sodium chloride 0.9% 1,000 ML 15 ML IV (08:33)
--- NOTE | 2024-09-28 09:43 | ANES.PREANE2 ---
Pre-Anesthetic Assessment Height/Weight: Height 1.5 m Weight 68.039 kg Temp Pulse Resp BP Pulse Ox O2 Del Method 97.0 F L 73 16 150/77 96 Room Air 09/28/24 08:28 09/28/24 08:28 09/28/24 08:28 09/28/24 08:28 09/28/24 08:28 09/28/24 08:28 Preop Diagnosis: difficulty swallowing Operation Date: 09/28/24 09:55 Proposed Procedures p EGD Dilation W/ Balloon 23951 K21.9(Not Applicable) - Ponce Negro MD Familial anesthetic complications: none Was Beta Gabriel taken within 24 hours: N/A Was Clonidine taken within 24 hours: N/A Last intake: Intake Last Liquid Date 09/27/24 Last Liquid Time 22:30 Last Solid Date 09/27/24 Last Solid Time 14:00 Social No alcohol and No tobacco Marijuana gummies nightly Airway Submandibular: within normal limits Cervical ROM: within normal limits Mallampati: Class II Dentition: full History/ROS No significant history except as noted and No significant complaints Pulmonary None reported CV/HEM Coronary Artery Disease Stents 2009 None reported Hepatic None reported GI Gastroesophageal Reflux Disease Metabolic Thyroid Disease [facility] None reported Neuropsych Bipolar and Depression Anesthetic Plan ASA status: 3 Anesthesia: MAC Risk of > 500 ml blood loss (7ml/kg in children): No Medications/Allergies Home Medications ?Medication ?Instructions ?Recorded ?Confirmed ?Last Taken ?Type aspirin 81 mg tablet,delayed 81 mg PO BEDTIME 05/09/19 09/28/24 09/26/24 History release (Adult Aspirin Regimen) nitroglycerin 0.4 mg sublingual 0.4 mg sublingual Q5M PRN chest 07/04/20 09/28/24 Unknown Rx tablet pain #25 tabs acetaminophen 500 mg tablet 500 mg PO DAILY PRN fever or pain 07/11/21 09/28/24 02/19/22 History (Tylenol Extra Strength) cyanocobalamin (vitamin B-12) 1,000 mcg PO DAILY 01/12/22 09/28/24 09/25/24 History 1,000 mcg capsule magnesium 200 mg tablet 200 mg PO DAILY 01/12/22 09/28/24 09/25/24 History cholecalciferol (vitamin D3) 25 25 mcg PO DAILY 1009/28/24 09/25/24 History mcg (1,000 unit) tablet (Vitamin D3) coenzyme Q10 75 mg capsule 75 mg PO BEDTIME 02/19/22 09/28/24 09/25/24 History vitamin E 268 mg (400 unit) capsule 268 mg PO DAILY 02/19/22 09/28/24 09/25/24 History atorvastatin 10 mg tablet 10 mg PO DAILY #90 tabs 01/10/24 09/28/24 09/26/24 Rx pantoprazole 40 mg tablet,delayed 40 mg PO DAILY 90 days #90 tabs 03/07/24 09/28/24 Unknown Rx release (Protonix) bupropion HCl 150 mg 24 hr tablet, 150 mg PO QAM #30 tabs 03/21/24 09/28/24 09/26/24 Rx extended release (Wellbutrin XL) potassium chloride 10 mEq 10 meq PO DAILY #90 tabs 07/27/24 09/28/24 09/26/24 Rx tablet,extended release(part/cryst) (Klor-Con M) mirtazapine 15 mg tablet 15 mg PO .HS #30 tabs 08/21/24 09/28/24 09/25/24 Rx fluoxetine 20 mg capsule 60 mg PO QAM 09/26/24 09/28/24 09/26/24 History hydrochlorothiazide 12.5 mg tablet 12.5 mg PO DAILY 09/26/24 09/28/24 09/28/24 History levothyroxine 25 mcg tablet 25 mcg PO DAILY 09/26/24 09/28/24 09/28/24 History Allergies Allergy/AdvReac Type Severity Reaction Status Date / Time No Known Allergies Allergy Verified 09/28/24 08:23 Current Medications Generic Name Dose Route Start Last Admin Trade Name Freq PRN Reason Stop Dose Admin Sodium Chloride 1,000 mls @ 15 mls/hr 09/28/24 08:15 09/28/24 08:33 Sodium Chloride 0.9% IV 09/29/24 08:14 15 mls/hr .Q24H PRN Administration COLONOSCOPY FLUIDS PFSH Anesthesia Medical History Psychiatric care Vitamin B12 deficiency Vitamin D deficiency Enrolled in chronic care management Back pain of lumbosacral region with sciatica History of ID (myocardial infarction) Hyperlipemia Edema Shortness of breath Family History Other No significant family history Social History Smoking and tobacco/nicotine status: tobacco/nicotine user, details unknown Second hand smoke exposure: Yes (Once in a while.) Alcohol intake: former Substance/Drug Use: never Sexually active: Yes Do you think of yourself as: Straight/Heterosexual Current gender identity: Female Agree to transfusion: Yes Data Anesthesia Cardiac Studies: Echocardiogram 03/28/24 Sestamibi Stress Test (Cardiology) 03/28/24
[2024-09-28 10:09] VITALS: BP 102/64; PULSE 72; RESP 18; TEMP 36.2; O2SAT 95
[2024-09-28 10:19] VITALS: BP 103/68; PULSE 73; RESP 18; O2SAT 99
--- NOTE | 2024-09-28 10:40 | ANE.PACU2 ---
Inpatient post-anesthesia follow up: Airway intact: Yes Vital signs: Temperature 97.2 F Pulse Rate 73 Respiratory Rate 18 Blood Pressure 103/68 Pulse Oximetry 99 Oxygen Delivery Me thod Room Air Oxygen Flow Rate Fraction of Inspir ed Oxygen Hydration adequate: Yes Nausea and vomiting: No Pain level: 1 Mental status: Baseline
== END 2024-09-28 10:43 | disposition home or self-care (01) ==
PROVIDERS: PCP Registered Nurse; Visit Provider Surgery
DX: K29.50 Unspecified chronic gastritis without bleeding (principal); K29.80 Duodenitis without bleeding; K21.9 Gastro-esophageal reflux disease without esophagitis; I25.10 Atherosclerotic heart disease of native coronary artery without angina pectoris; Z95.5 Presence of coronary angioplasty implant and graft; Z79.82 Long term (current) use of aspirin; Z79.899 Other long term (current) drug therapy; E78.5 Hyperlipidemia, unspecified; I25.2 Old myocardial infarction
CPT/HCPCS: 43239; 88305; 88342; J2704; J7030

== ENCOUNTER → 2024-10-17 14:02 | Outpatient (BNVA) | payer MEDICARE, SELFPAY | PROVIDERS: PCP Registered Nurse; Visit Provider Surgery | DX: Z09 Encounter for follow-up examination after completed treatment for conditions other than malignant neoplasm (principal) | CPT/HCPCS: 99214 ==

== ENCOUNTER 2024-10-25 09:21 | Outpatient (CLI) | payer MEDICARE, SELFPAY ==
--- NOTE | 2024-10-25 10:00 | FL_ITS ---
WS: [id number] Exam: FL barium swallow modifd [id number] Date/Time of Exam: 10/25/2024 10:06 AM Reason For Exam: Fluoroscopy time: # of spot films: Modified barium swallow test was performed in conjunction with the speech therapy service. Oral pharyngeal phase of swallowing was normal. The patient tolerated all consistencies of barium mixture foodstuffs without aspiration or penetration. The patient swallowed a barium tablet without difficulty. FL/FL barium swallow modifd [id number] IMPRESSION: 1. No sign of aspiration or penetration. A separate report with recommendations will follow from the speech therapy serv ice.
== END 2024-10-25 09:22 | disposition home or self-care (01) ==
LOC: RAD 09:22
PROVIDERS: PCP Registered Nurse; Visit Provider Surgery
DX: R13.10 Dysphagia, unspecified (principal); R93.89 Abnormal findings on diagnostic imaging of other specified body structures
CPT/HCPCS: 74230; 92611

== ENCOUNTER → 2025-02-23 09:53 | Outpatient (BNVA) | payer MEDICARE, SELFPAY | PROVIDERS: PCP Registered Nurse; Visit Provider Podiatrist Foot & Ankle Surgery | DX: L60.0 Ingrowing nail (principal); L60.3 Nail dystrophy | CPT/HCPCS: 99203 ==

== ENCOUNTER → 2025-04-10 11:31 | Outpatient (BNVA) | payer MEDICARE, SELFPAY | PROVIDERS: PCP Registered Nurse; Visit Provider Podiatrist Foot & Ankle Surgery | DX: L60.8 Other nail disorders (principal); L60.3 Nail dystrophy | CPT/HCPCS: 36415; 80053 ==